=== PATIENT | female | born 1995 | race Caucasian/White ===

== ENCOUNTER 2022-12-29 17:39 | Emergency (ER) | payer OTHER, SELFPAY ==
--- NOTE | ~2022-12-29 | US_ITS ---
EXAMINATION: US PELVIS CLINICAL INFORMATION: History vaginal bleeding, pain. COMPARISON: None available. TECHNIQUE: Ultrasound of the pelvis is performed using both transabdominal and transvaginal transducers along with Doppler. Transvaginal imaging is performed due to inadequate visualization transabdominally. FINDINGS: The uterus is anteverted and measures 9 x 4 x 4.6 cm. No discrete uterine mass. The endometrium measures 1.3 cm in thickness without discrete focal abnormality. Complex appearance of the cervix with a prominent 2 x 1.2 x 1.6 cm polypoid/masslike abnormality in the endocervical canal, demonstrating heterogeneous echogenicity and no discrete associated flow. There is motion of debris within the endometrial canal and endocervical canal suggesting active movement of fluid/blood products. The ovaries are normal in morphology. The right ovary measures 2.5 x 1.6 x 2 cm, 4.4 mL. The left ovary measures 2.8 x 1.6 x 1 cm, 2.6 mL. There is preserved flow on color and spectral Doppler to the right ovary at the moment of this examination. There is preserved color flow to the left adnexa at the moment of this examination, however flow is not identified in the left ovary, which is favored to be related with technique limitations secondary to patient body habitus and overlying bowel gas, as the ovary demonstrates a normal size and morphology. No significant free fluid. US/US pelvic and transvaginal IMPRESSION: 1. Prominent approximately 2 cm avascular polypoid/masslike abnormality in the endocervical canal that could represent a blood clot/hematoma. Recommend a short-term follow-up pelvic ultrasound to ensure appropriate resolution and rule out underlying polyp or other type of intracervical mass. 2. Motion of debris in the cine images in the endometrium and endocervical canal suggests active motion of free fluid/blood products. 3. The endometrium measures up to 1.3 cm in thickness which is expected in a premenopausal patient on the secretory phase. However, during the menstruation this is considered abnormal, a short-term follow-up ultrasound is recommended. 4. Ovaries are normal in morphology and size. Flow to the left ovary was not definitely identified in this examination, but this is favored to be related with technique limitations in view of otherwise normal appearance of the left ovary. If torsion/detorsion is suspected, close follow-up and a very short-term repeat ultrasound is recommended.
[2022-12-29 17:42] VITALS: BP 139/94; PULSE 135; RESP 16; TEMP 36.8; O2SAT 97; BMI 33.2
--- NOTE | 2022-12-29 17:43 | ED.GENADULT ---
HPI - General Adult General Chief complaint: Vaginal Bleeding Stated complaint: Constant Vaginal Bleeding Time Seen by Provider: 12/29/22 19:49 Source: patient Mode of arrival: ambulatory Limitations: no limitations History of Present Illness HPI narrative: 27-year-old female presents with vaginal bleeding. Patient has history of irregular menses. Last menses was about 3-4 weeks ago. She is unsure if she is . She has started to have spotting yesterday and then today she had more significant bright red blood. No significant clots. She has had some moderate to severe cramping that is intermittent without clear relieving or exacerbating features. She denies any fevers or chills. She denies any urinary complaints. She denies any additional areas of bleeding. Related Data Allergies Allergy/AdvReac Type Severity Reaction Status Date / Time codeine Allergy Mild Hives Verified 12/29/22 17:47 Review of Systems Review of Systems: CONSTITUTIONAL: Denies weight loss, fever and chills. HEENT: Denies changes in vision and hearing. RESPIRATORY: Denies SOB and cough. CV: Denies palpitations no CP. GI: + abdominal pain, nausea,- vomiting and diarrhea. : Denies dysuria and urinary frequency. MSK: Denies myalgia and joint pain. SKIN: Denies rash and pruritus. NEUROLOGICAL: Denies headache and syncope. PSYCHIATRIC: Denies recent changes in mood. Denies anxiety and depression. All other ROS are negative unless in HPI [facility] Social History Social History Alcohol intake: current Alcohol intake frequency: a few times a month Smoked in Last 30 Days: Yes Use of substances other than those prescribed or required for medical reasons: Yes Substance Use Type: Marijuana Advance Directives: No Advance Directives Information Provided: No Physical Exam ED Vital Signs: Vital Signs - 24 hr 12/29/22 17:42 12/29/22 23:54 Temperature 98.2 F 98.3 F Pulse Rate 135 H 88 Respiratory Rate 16 18 Blood Pressure 139/94 H 95/53 L Pulse Oximetry 97 98 Oxygen Delivery Method Room Air Room Air BMI result Body Mass Index 33.2 GEN: Well developed, no acute distress, alert, oriented HEENT: Normocephalic, atraumatic, normal external ears, nose appears normal, no oropharyngeal edema or exudates Eyes: Normal to appearance Neck: Supple, no lymphadenopathy Respiratory: Talks in complete sentences, no respiratory distress, clear to auscultation bilaterally Cardiovascular: Regular rate and rhythm, no murmurs rubs or gallops Abdomen: Soft, nontender, nondistended, no guarding, no rebound Back: No CVA tenderness Extremities: No clubbing cyanosis or edema Neurologic: No focal neurologic deficits, cranial nerves 2-12 intact, strength is 5/5 bilaterally Skin: No rash : No active bleeding, small amount of blood in the vaginal canal, os closed Course Course Course Narrative: RME- 27 year old female presents for evaluation of vaginal bleeding and cramping that started earlier today. Patient reports that she gets irregular periods at baseline but has been having heavy vaginal bleeding with lower abdominal pain. She is not on control. Does not believe she is , but is sexually active. Plan for labs, UA, pelvic ultrasound Reevaluation(s) Reevaluation #1: patient is Rh positive. She does not need RhoGAM. Will recommend she follow-up with an OBGYN in 2 days or she can return to the emergency department for repeat blood testing Time: 00:01 Medical Decision Making Medical Decision Making [facility] Narrative: 27-year-old female presents with vaginal bleeding. Will check a CBC, hCG. If she will need a type and screen. Patient is unclear if she is in fact . Will obtain an ultrasound to rule out any significant abdomen issues and if she is in fact , to check for an intrauterine . Differential Diagnosis Differential Diagnoses: The differential diagnosis associated with the presentation includes ( DUB,. , menometrorrhagia, miscarriage) Admission/Observation Consideration of admission/observation: Escalation of care including admission/observation considered Lab Data [facility] Lab Attestation statement: I reviewed the patient's lab results. 12/29/22 18:17 12/29/22 18:17 Labs: Lab Results 12/29/22 12/29/22 12/29/22 Range/Units 18:17 18:17 22:46 WBC 10.7 (4.8-10.8) X10*3/uL RBC 3.84 L (4.20-5.50) X10*6/uL Hgb 11.6 L (12.0-16.0) g/dl Hct 33.2 L (37.0-47.0) % MCV 86.5 (80.0-98.0) fL MCH 30.2 (27.0-33.0) pg MCHC 34.9 (31.0-35.0) g/dl RDW 12.8 (11.0-16.0) % Plt Count 328 (160-400) X10*3/uL MPV 10.6 (9.4-12.3) fL Immature Gran % (Auto) 1.3 H (0.0-0.4) % Neut % (Auto) 60.5 (45-73) % Lymph % (Auto) 30.0 (20-40) % Hemphill % (Auto) 7.2 (2-11) % Eos % (Auto) 0.8 (0-4) % Baso % (Auto) 0.2 (0-2) % Lymph # (Auto) 3.2 (1.2-4.9) X10*3/uL Hemphill # (Auto) 0.8 (0.1-1.2) X10*3/uL Eos # (Auto) 0.1 (0.0-0.4) X10*3/uL Baso # (Auto) 0.0 (0.0-0.2) X10*3/uL Abs Immat Gran (auto) 0.14 H (0.00-0.03) X10*3/uL Absolute Neuts (auto) 6.4 (2.0-8.3) x10*3/uL Absolute Nucleated RBC 0.000 (0.0-0.012) X10*3/uL Nucleated RBC % (auto) 0.0 (0.0-0.2) /100WBC Sodium 137 (135-145) mmol/L Potassium 3.7 (3.3-5.1) mmol/L Chloride 106 (96-108) mmol/L Carbon Dioxide 24 (22-29) mmol/L Anion Gap 11 L (12-20) BUN 12 (9-16) mg/dL Creatinine 0.91 (0.5-1.4) mg/dL Estim Creat Clear Calc 86.0 Estimated GFR > 60 Random Glucose 98 (60-115) mg/dL Calcium 9.3 (8.4-10.2) mg/dL Total Bilirubin 0.4 (0.0-1.0) mg/dL AST 12 (5-31) U/L ALT 17 (0-31) U/L Alkaline Phosphatase 65 (39-117) U/L Total Protein 6.7 (6.5-8.0) g/dL Albumin 3.7 (3.5-5.0) g/dL Lipase 10 (8-78) U/L Beta HCG, Quant 1729 mIU/mL Blood Type O Positive Antibody Screen NEGATIVE Independent Interpretation I performed an independent interpretation of an: Ultrasound (No IUP visualized) Radiology Impression Discussion of test interpretation with radiology: I have reviewed the radiologist's reading. Radiologist Impression: US/US pelvic and transvaginal IMPRESSION: 1.? Prominent approximately 2 cm avascular polypoid/masslike abnormality in the endocervical canal that could represent a blood clot/hematoma. Recommend a short-term follow-up pelvic ultrasound to ensure appropriate resolution and rule out underlying polyp or other type of intracervical mass. 2.? Motion of debris in the cine images in the endometrium and endocervical canal suggests active motion of free fluid/blood products. 3.? The endometrium measures up to 1.3 cm in thickness which is expected in a premenopausal patient on the secretory phase. However, during the menstruation this is considered abnormal, a short-term follow-up ultrasound is recommended. 4.? Ovaries are normal in morphology and size. Flow to the left ovary was not definitely identified in this examination, but this is favored to be related with technique limitations in view of otherwise normal appearance of the left ovary. If torsion/detorsion is suspected, close follow-up and a very short-term repeat ultrasound is recommended. Prescription Management I considered prescription management with: Pain Medication and Other ( RhoGAM) Discharge Plan Discharge Clinical Impression: Miscarriage Patient Disposition: Home, Self-Care Instructions: Miscarriage (ED) Additional Instructions: I am recommending that you repeat blood testing for your quantitative hCG in 2 days. He can follow-up with any OBGYN or you can return to the emergency department for re-evaluation. Referrals: Rui Craig MD [Physician] - 2 days
--- OUTSIDE RECORDS SUMMARY | 2022-12-29 18:03 | XMS_ITS | Continuity of Care Document ---
Author Name Unknown Organization [facility] Address [address] [address]- Care Team Providers Care Heading Maker Name Role Phone Bassam MOTA, Ricky Marcus Primary Care Physician [facility]counter [facility] Date(s): 04/08/22 - 05/08/[address] [facility] [address] [address]- Allergies, Adverse Reactions, Alerts Substance Reaction Severity Status codeine rash Active Immunizations Given and Recorded Vaccine Date Status Refusal Reason SARS-CoV-2 (COVID-19) mRNA-1273 vaccine 04/25/21 R ecorded SARS-CoV-2 (COVID-19) mRNA-1273 vaccine 03/28/21 R ecorded influenza virus vaccine, inactivated 02/04/17 Give n influenza virus vaccine, inactivated 04/04/12 Give n influenza virus vaccine, inactivated 1 07/08/10 Gi licha tetanus/diphtheria/pertussis, acel(Tdap) 12/24/16 Given tetanus/diphtheria/pertussis, acel(Tdap) 2 07/08/10 Given influenza virus vaccine, live 02/11/15 Given influenza virus vaccine, live 3 04/19/14 Given Varicella Virus Vaccine 04/04/12 Given Varicella Virus Vaccine 4 01/03/98 Given Meningococcal Conjugate Vaccine 04/04/12 Given Human Papillomavirus Vaccine 04/04/12 Given Human Papillomavirus Vaccine 5 05/19/11 Given Human Papillomavirus Vaccine 6 07/08/10 Given Measles/Mumps/Rubella Virus Vaccine 7 07/08/10 Giv en Measles/Mumps/Rubella Virus Vaccine 8 03/27/01 Giv en Measles/Mumps/Rubella Virus Vaccine 9 01/03/98 Giv en Poliovirus Vaccine, Inactivated 10 03/27/01 Given Poliovirus Vaccine, Inactivated 11 01/03/98 Given Poliovirus Vaccine, Inactivated 12 10/03/97 Given Poliovirus Vaccine, Inactivated 13 08/03/97 Given diphtheria/tetanus/pertussis, acel(DTaP) 14 03/27/01 Given diphtheria/tetanus/pertussis, acel(DTaP) 15 07/06/98 Given diphtheria/tetanus/pertussis, acel(DTaP) 16 11/03/97 Given diphtheria/tetanus/pertussis, acel(DTaP) 17 10/03/97 Given diphtheria/tetanus/pertussis, acel(DTaP) 18 08/03/97 Given Haemophilus B conjugate (HbOC) vaccine 19 01/03/98 Given Haemophilus B conjugate (HbOC) vaccine 20 11/03/97 Given Haemophilus B conjugate (HbOC) vaccine 21 10/03/97 Given Haemophilus B conjugate (HbOC) vaccine 22 08/03/97 Given hepatitis B pediatric vaccine 23 11/03/97 Given hepatitis B pediatric vaccine 24 08/03/97 Given hepatitis B pediatric vaccine 25 01/03/97 Given 1Admin Note: VIS 12/16/09 GIVEN 2Admin Note: ADACEL LOWER SITE VIS 03/26/08 GIVEN 3Result Comment: verbal permission by mom via phone 4Admin Note: GIVEN BY RN 5Admin Note: VIS 06/10/06 GIVEN 6Admin Note: VIS 06/10/06 GIVEN 7Admin Note: vis 07/20/07 given 8Admin Note: GIVEN BY RN 9Admin Note: GIVEN BY RN 10Admin Note: GIVEN BY RN 11Admin Note: GIVEN BY RN 12Admin Note: GIVEN BY RN 13Admin Note: GIVEN BY RN 14Admin Note: GIVEN BY RN 15Admin Note: GIVEN BY RN 16Admin Note: GIVEN BY RN 17Admin Note: GIVEN BY RN 18Admin Note: GIVEN BY RN 19Admin Note: GIVEN BY RN 20Admin Note: GIVEN BY RN 21Admin Note: GIVEN BY RN 22Admin Note: GIVEN BY RN 23Admin Note: GIVEN BY RN 24Admin Note: GIVEN BY RN 25Admin Note: GIVEN BY RN Medications hydrocortisone 1% topical cream See Instructions, apply a thin layer to face 1 to 3 times per day as needed for itch., # 30 Gm, 0 Refills, Maintenance, 05/24/19 18:40:00 EST, [id number], apply a thin layer to face 1 to 3 times per day as needed for itch., 155.1, cm,... Start Date: 05/24/19 Status: Ordered ibuprofen 800 mg oral tablet 800 mg, 1, tablet, By Mouth, Every 8 hours, # 30 tablet, Refills 0, Tot. Refills 0, Maintenance, 04/17/22 6:45:00 EST, Route to Pharmacy Electronically, [id number], Partial fill uponpatient request if the prescription is for a schedu... Start Date: 04/17/22 Status: Ordered Multivitamins with Folic Acid 1 mg oral tablet 1 tablet, By Mouth, Daily, # 90 tablet, 2 Refills, Maintenance, 03/25/22 9:19:00 EST, [id number], Partial fill upon patient request if the prescription is for a schedule II opioid drug., 1 tablet By Mouth Daily, 155.1, cm, 03/25/22 8:... Start Date: 03/25/22 Status: Ordered Problem List Condition Confirmation Course Effective Dates Status Health St atus Informant Allergic reaction to drug Confirmed Active H/O gestational diabetes in prior , currently Confirmed Active History of COVID-19 May 1 Confirmed Active Obese class I Confirmed Active Well adolescent Confirmed Active 1 I still can't smell some things or taste them Social History Social History Type Response Smoking Status Never (less than 100 in lifetime) entered on: 03/25/22 Sex Female Patient Care team information Care Team Personnel Name: Dottie Nicole RN Position: [facility] OB RN Member Role: Primary Care Nurse Name: Ricky Banegas MD Position: [facility] Primary Care Physician Member Role: PCP Address: Address: [address] [place] [address]- Care Team Related Persons Name: ANNA BAEZA Name: FELTON TAPIA Address: [address] [place] [address] Name: FEDE ALMARAZ Address: [address] [address]
--- OUTSIDE RECORDS SUMMARY | 2022-12-29 18:03 | XMS_ITS | Continuity of Care Document ---
Author Name Unknown Organization [facility] Address [address] [place] [address]- Care Team Providers Care Hotel Desk Clerk Name Role Phone Bassam MOTA, Ricky Marcus Primary Care Physician [facility]counter [facility] Date[facility]s): 03/30/22 - 04/29/[address] [address]- Allergies, Adverse Reactions, Alerts Substance Reaction Severity [...] Gm, 0 Refills, Maintenance, 05/24/19 18:40:00 EST, [facility][id number], apply a thin layer to face 1 to 3 times per day as needed for itch., 155.1, cm,... Start Date: 05/24/19 Status: Ordered ibuprofen 800 mg oral tablet 800 mg, 1, tablet, By Mouth, Every 8 hours, # 30 tablet, Refills 0, Tot. Refills 0, Maintenance, 04/17/22 6:45:00 EST, Route to Pharmacy Electronically, [facility] #[id number], Partial fill uponpatient request if the prescription is for a schedu... Start Date: 04/17/22 Status: Ordered Multivitamins with Folic Acid 1 mg oral tablet 1 tablet, By Mouth, Daily, # 90 tablet, 2 Refills, Maintenance, 03/25/22 9:19:00 EST, [facility] #[id number], Partial fill upon patient request if the [...] Team Personnel Name: Dottie Nicole RN Position: [facility] OB RN Member Role: Primary Care Nurse Name: Ricky Banegas MD Position: [facility] Primary Care Physician Member Role: PCP Address: Address: [address] [place] [id number]- Care Team Related Persons Name: SOLEDAD BAEZAICE Name: FELTON TAPIA Address: [address] [place] [address] Name: FEDE ALMARAZ Address: [address] [address]
--- OUTSIDE RECORDS SUMMARY | 2022-12-29 18:03 | XMS_ITS | Continuity of Care Document ---
Author Name Unknown Organization [facility] Address [address] [place] [address]- Care Team Providers Care Retread Mold Operator Name Role Phone Michael Kim MD Primary Care Physician [phone] [facility]counter [facility] Date(s): 05/24/19 - 06/03/19 [facility] [address] [place] [address]- [facility] Attending Physician: Meghana Randall Admitting Physician: AdmMeghana kline Referring Physician: AdmtrMeghana Allergies, Adverse Reactions, Alerts Substance Reaction Severity Status codeine rash Active Immunizations Given and Recorded Vaccine Date Status Refusal Reason influenza virus vaccine, inactivated 02/04/17 Give n [...] 30 Gm, 0 Refills, Maintenance, 05/24/19 18:40:00 [facility] #[id number], apply a thin layer to face 1 to 3 times per day as needed for itch., 155.1, cm,... Start Date: 05/24/19 Status: Ordered Nexplanon 68 mg subcutaneous implant 1 each = 68 mg, Subcutaneous Infusion, Once, # 1 each, 0 Refills, Soft Stop, 03/09/17 1:02:31 Start Date: 03/09/17 Status: Ordered Problem List Condition Effective Dates Status Health Status Inform ant Gestational diabetes(Confirmed) Active Well adolescent(Confirmed) Active Social History Social History Type Response Smoking Status Never (less than 100 in lifetime) entered on: 01/19/19 Sex
--- OUTSIDE RECORDS SUMMARY | 2022-12-29 18:03 | XMS_ITS | Continuity of Care Document ---
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 Start Date: 05/24/19 Status: Ordered Multivitamins with Folic Acid 1 mg oral tablet 1 tablet, By Mouth, Daily, # 90 tablet, 2 Refills, Maintenance, 03/25/22 9:19:00 EST, [facility] #[id number], Partial fill upon patient request if the prescription is for a schedule II opioid drug., 1 tablet By Mouth Daily, 155.1, cm, 03/25/22 8:... Start Date: 03/25/22 Status: Ordered pyridoxine 25 mg oral tablet 1 tablet = 25 mg, By Mouth, 3 times a day, for 14 days, # 42 tablet, 1 Refills, Acute 04/22/22 9:19:00 EST, 03/25/22 9:19:00 EST, Tablet, [facility][id number], Partial fill upon patient request if the prescription is for a schedule II opioid . Start Date: 03/25/22 Stop Date: 04/22/22 Status: Ordered Problem List Condition Confirmation Course Effective Dates Status Health St atus Informant Allergic reaction to drug Confirmed Active H/O gestational diabetes in prior , currently Confirmed Active History of COVID-May 1 Confirmed Active Obese class I Confirmed Active Well adolescent Confirmed Active 1 I still can't smell some things or taste them Vital Signs Most recent to oldest [Reference Range]: 1 2 3 Weight 78.1 kg (04/16/22 9:50 AM) Oxygen Saturation [94-100 %] 96 % (04/16/22 11:30 AM) 100 % (04/16/22 11:15 AM) 99 % (04/16/22 11:00 AM) Pulse Rate [55-90 bpm] 58 bpm (04/16/22 9:50 AM) Blood Pressure [90-138/55-84 mm Hg] 126/87mm Hg (04/16/22 11:30 AM) 123/80mm Hg (04/16/22 11:15 AM) 117/70mm Hg (04/16/22 11:00 AM) Respiratory Rate [16-30 br/min] 17 br/min (04/16/22 11:30 AM) 18 br/min (04/16/22 11:15 AM) 21 br/min (04/16/22 11:00 AM) Temperature [96.8-100.4 DegF] 97.1 DegF (04/16/22 11:00 AM) 98.0 DegF (04/16/22 9:50 AM) Liters per Minute 6 L/min (04/16/22 11:15 AM) 6 L/min (04/16/22 11:00 AM) Mode of Delivery (Oxygen) Room air (04/16/22 11:30 AM) Simple face mask (04/16/22 11:15 AM) Simple face mask (04/16/22 11:00 AM) Blood pressure sites Arm, left (04/16/22 11:00 AM) Arm, left (04/16/22 9:50 AM) Temperature Route Temporal (04/16/22 11:00 AM) Temporal (04/16/22 9:50 AM) Dry Weight 78.1 kg (04/16/22 9:50 AM) Weight Obtained Via Standing scale (04/16/22 9:50 AM) Dry Weight Obtained Via Standing scale (04/16/22 9:50 AM) Social History Social History Type Response Smoking Status Never (less than 100 in lifetime) entered on: 03/25/22 Sex Note * Evelyn Arzola RN: PERFORM Event Display: Discharge/Transfer Note Hospital Authored Date: [id number] Nursing Discharge Note Entered On: 04/16/2022 12:11 EST Performed On: 04/16/2022 12:10 EST by Evelyn Arzola RN Nursing Discharge Note 2 Discharge Time : 04/16/2022 12:10 EST Discharge Level of Care at Discharge : Home/Care Home/Foster Care Patient Left Unit Via : Wheelchair Patient Accompanied Off Unit with : Responsible adult DC Instructions Provided & Signed by Pt : Yes Patient Understands D/C Instructions : Yes Patient Instructions Discharge Signed : Yes Did Pt have Specialty Bed or Wound Vac : No Evelyn Arzola RN - 04/16/2022 12:10 EST * Evelyn Arzola RN: PERFORM Event Display: Patient Education/Instruction Authored Date: Inpatient Adult Discharge Instructions [address] [address] Name: MARY TAPIA : 1995 Visit: 04/16/2022 09:09:00 Current Date: 04/16/2022 11:21 Account: [id number] Inpatient Adult Discharge Instructions We would like to thank you for allowing us to assist you with your healthcare needs. The following includes patient education materials and information regarding your injury/illness. Our entire staffstrives to provide an excellent experience for our patients and their families. PLEASE ENSURE YOU FOLLOW-UP PER THE INSTRUCTIONS BELOW! ?? YOUR OPINION IS IMPORTANT TO US! Please complete the survey you may receive by mail or email. Your feedback will be used to make improvements to the healthcare experiences of our patients and their families. Surveys are administered by [employer] ?? If further treatment with your primary care physician or another doctor is recommended, it is important for you to keep the appointment. Call your primary care physician or return to the Emergency Department immediately if your condition worsens, fails to improve, or new symptoms develop. If you need to find a doctor, you can call [facility] [employer] for a referral at [phone] or toll free at [phone] or log in to [email or web address].. ?? You can view and manage your care through the patient portal or by using a health care malinda of your choosing. [email or web address] is a website that allows you to securely view your medical information including your hospital discharge summary, office visit summaries, medications and follow-up visits. You can also request appointments, renew medications, and request access to your medical information using a health care malinda of your choosing, or just ask a question. You can enroll at [email or web address] or register during your next office visit. You have been discharged from [facility], Patient Care Unit: [facility]. If you have any questions regarding these instructions after you leave, please call us and we will be happy to assist you. [facility] Your Care Team Attending Physician Ada Prince MD Discharging Providers Harvey Nolasco DO Reason for Admission SPECIAL PROCEDURE CS DS Tests Performed Below is a partial list of the tests performed during your hospitalization. You may have had other tests and procedures not included in this list. Please discuss all test results with your provider. Primary Care Provider Ricky Banegas MD Advance Directive Health Care Proxy on File No No qualifying data available. Discharge Vitals Temperature: 97.1 DegF Weight: 78.1 kg Pulse Rate: 58 bpm ?? Respiratory Rate: 18 br/min ?? Systolic Blood Pressure: 123 mm Hg ?? Diastolic Blood Pressure: 80 mm Hg ?? Oxygen Saturation: 100 % ?? Studies Pending All tests and labs ordered during this hospital stay have been completed unless listed below. Please discuss all pending results with your provider listed above in these instructions. ?? No incomplete studies found What to do next Instructions From Your Doctor Discharge Orders Instructions from your Care Team FOLLOW POSTOP INSTRUCTIONS Scheduled Follow-Up Appointments Tuesday 9:40 AM EST ?? Where: [facility] [address] [place] [address]- You Need to Schedule the Following Appointments Follow Up with??Ada Prince When??Within 1 to 2 weeks Where: [address] [place] [address] [address]- Business (1) Follow Up with??Ricky Banegas When??In 0 days Where: [address] [place] [address]- Business (1) Discharge Medications MARY TAPIA :1995 Visit Date:04/16/2022 Medications: Please continue your medications until treatment is completed or stopped by your provider. Medications not listed below should be discontinued. Discuss any questions related to medications with your provider. What How Much When Instructions Next Dose Unchanged Hydrocortisone Topical (hydrocortisone 1% topical cream) See instructions apply a thin layer to face 1 to 3 times per day as needed for itch. ?? Unchanged Multivitamin, ( Multivitamins with Folic Acid 1 mg oral tablet) 1 tab(s) Oral Daily Unchanged Pyridoxine (pyridoxine 25 mg oral tablet) 1 tab(s) Oral 3 times a day Duration: 14 Days Test Results Below is a partial list of the most recent Laboratory test results done prior to this discharge. You may have had other tests and procedures not included in this list. Please discuss all test resultswith your provider. Allergies (NKA means No Known Allergies) codeine??(rash) Problems Active Problems??(6) Allergic reaction to drug?? H/O gestational diabetes in prior , currently ?? History of COVID-19 ??May?? Obese class I? Well adolescent?? Education Materials Below is the list of Educational Leaflet Providered with your Discharge Instructions. Surgery Medical Daystay Surgical Overnight Discharge Instructions?? Valuables and Belongings I fully understand and agree that [facility] accepts no responsibility for all my personal property including clothing, toilet articles, radios, jewelry, dentures, hearing aids, rings, money, or any other property that is in my possession or is brought to me after admission. I understand certain valuables may be placed in a hospital safe for a short period of time. I understand that the hospital is not liable for loss or damage due to accident, fire, or other natural occurrence while said property is in the safe. I accept full responsibility for any personal property that I keep with me, and will not hold the hospital responsible in case of loss or disappearance. I acknowledge that i have been encouraged to send valuables and belongings home. ?? Review of Valuable and Belonging List: With patient Date for Pt to Sign Valuables/Belongings: 04/16/22 09:50:00 ?? Valuables & Belongings ?? 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 Other: ID ?? Valuables Sent Home ? Valuables Sent to Security ? Other Discharge Information ? Pulmonary Rehab Status?? Pulmonary Rehab Discharge Status?? Respiratory Rate: 18 br/min ? Common Emergency Awareness Tips IS IT A STROKE? Act FAST and Check for these signs: FACE Does the face look uneven? ARM Does one arm drift down? SPEECH Does their speech sound strange? TIME Call at any sign of stroke ?? Heart Attack Signs Chest discomfort: Most heart attacks involve discomfort in the center of the chest and lasts more than a few minutes, or goes away and comes back. It can feel like uncomfortable pressure, squeezing, fullness or pain. Discomfort in upper body: Symptoms can include pain or discomfort in one or both arms, back, neck, jaw or stomach. Shortness of breath: With or without discomfort. Other signs: Breaking out in a cold sweat, nausea, or lightheaded. Remember, MINUTES DO MATTER. If you experience any of these heart attack warning signs, call to get immediate medical attention! ?? Smoking can increase your chances of developing chronic health problems and can cause harmful effects to other family members in your house. If you smoke, you are strongly encouraged to quit. Please call [facility] [employer] at [phone] or [phone] ([phone]) or log in to [email or web address] for referrals to smoking cessation programs. ?? The National Suicide Prevention Hotline is available 29/11 if you or someone you know needs to find a reason to keep living. By calling 4-542-019-[employer] (2840) you'll be connected to a skilled, trained counselor at a crisis center in your area. INPATIENT DISCHARGE INSTRUCTIONS SIGNATURE PAGE MARY TAPIA Location:[facility] Registration Date and Time:04/16/2022 09:09 [facility] Primary Care Physician: Bassam MOTA, Ricky Marcus, I MARY TAPIA, have received the above patient education materials/instructions and have verbalized understanding. If ambulance or transport services are being used I further acknowledge being given a choice of service. ?? If you need to contact me, please call me at this number: . Patient/Health Sciences Dean Name: Patient/Health Sciences Dean Signature: Relationship to Patient: Witness Name/Signature: Date: * Evelyn Arzola RN: PERFORM, SIGN, VERIFY Event Display: Patient Education Handout Authored Date: * Evelyn Arzola RN: PERFORM Event Display: Patient Education Leaflets Authored Date: Surgery Medical Daystay Surgical Overnight Discharge Instructions ?? 295 Medical Daystay/Surgical Overnight Discharge Instructions ? Since your coordination and judgment may be altered by medication and/or anesthesia, a responsible adult must drive you home from the hospital. ? If you have received medication for pain or sedation while under our care, you should not drive, operate machinery, drink alcohol, or sign any legal documents for 24 hours.?? You should have someone with you at home tonight. ? Remain at home the day of discharge.?? You may be up and about unless otherwise instructed by your physician. ? You may resume your daily prescription medication schedule.?? Any depressant medication should be avoided for 24 hours unless otherwise instructed by your surgeon or anesthesiologist. ? Call your physician for a follow-up appointment.? If you experience unusual or severe pain not relied by your pain medication, excessive bleedingor drainage, persistent nausea and vomiting, excessive swelling or redness, foul odor from incisionsite or fever over 100.6F, you need to call your physician. ? A follow-up phone call by a nurse will be made the day after your procedure.?? If you have stayed with us over night, you will not be receiving a follow-up phone call. ? Nausea and vomiting are a common side effect of prescription pain medication.?? We recommend that pills are not taken on an empty stomach.?? While taking any prescription pain medication you should not drive or drink alcohol. ? Patient Care team information Care Team Personnel Name: Dottie Nicole RN Position: [facility] OB RN Member Role: Primary Care Nurse Name: Ricky Banegas MD Position: [facility] Primary Care Physician Member Role: PCP Address: Address: [address] [place] [address]- Care Team Related Persons Name: ANNA BAEZA Name: FELTON TAPIA Address: home [address] [place] [address] Name: FEDE ALMARAZ Address: [address] [address]
--- OUTSIDE RECORDS SUMMARY | 2022-12-29 18:03 | XMS_ITS | Continuity of Care Document ---
Author Name Unknown Organization [facility] Address [address] [place] [address]- Care Team Providers Care Motion Picture Printer Name Role Phone Bassam MOTA, Ricky Marcus Primary Care Physician Encounter [facility] Date(s): 08/31/22 - 09/30/[address] [address]- Attending Physician: Admtr, Joseph8 Admitting Physician: Admtr, Ar8 Referring Physician: Admtr, Ar8 Allergies, Adverse Reactions, Alerts Substance Reaction Severity [...] Gm, 0 Refills, Maintenance, 05/24/19 18:40:00 EST, [facility] #[id number], apply a thin layer to face 1 to 3 times per day as needed for itch., 155.1, cm,... Start Date: 05/24/19 Status: Ordered ibuprofen 800 mg oral tablet 800 mg, 1, tablet, By Mouth, Every 8 hours, # 30 tablet, Refills 0, Tot. Refills 0, Maintenance, 04/17/22 6:45:00 EST, Route to Pharmacy Electronically, [facility] #[id number], Partial fill uponpatient request if the prescription is for a schedu... Start Date: 04/17/22 Status: Ordered Multivitamins with Folic Acid 1 mg oral tablet 1 tablet, By Mouth, Daily, # 90 tablet, 2 Refills, Maintenance, 03/25/22 9:19:00 EST, [facility] #[id number], Partial fill upon patient request if the [...] can't smell some things or taste them Procedures Procedure Date Related Diagnosis Body Site Status Nexplanon in place removed 2020 0503/11/17 Completed 1Insertion 03/11/17 Lot # [id number] Social History Social History Type Response Smoking Status Never (less than 100 in lifetime) entered on: 03/25/22 Sex Female Patient Care team information Care Team Personnel Name: Dottie Nicole RN Position: [facility] OB RN Member Role: Primary Care Nurse Name: Ricky Banegas MD Position: [facility] Physician - Primary Care Member Role: PCP Address: Address: [address] [place] [address] Care Team Related Persons Name: ANNA BAEZA Name: FELTON TAPIA Address: [address] [place] [address] Name: FEDE ALMARAZ Address: [address] [address]
--- OUTSIDE RECORDS SUMMARY | 2022-12-29 18:03 | XMS_ITS | Continuity of Care Document ---
Author Name Unknown Organization [facility] Address [address] [place] [address]- Care Team Providers Care Examination Grader Name Role Phone Michael Kim MD Primary Care Physician Encounter [facility] Date(s): 05/19/19 - 05/26/19 [facility] [address] [place] [address]- [facility] Attending Physician: Suman Zimmer MD Referring Physician: Michael Kim MD Allergies, Adverse Reactions, Alerts Substance Reaction [...] 30 Gm, 0 Refills, Maintenance, 05/24/19 18:40:00 [facility][id number], apply a thin layer to face 1 [...] ant Gestational diabetes(Confirmed) Active Well adolescent(Confirmed) Active Vital Signs Most recent to oldest [Reference Range]: 1 Height 155.1 cm (05/19/19 10:49 AM) Oxygen Saturation [94-100 %] 99 % (05/19/19 10:49 AM) Pulse Rate [55-90 bpm] 93 bpm *H* (05/19/19 10:49 AM) Blood Pressure [90-138/55-84 mm Hg] 129/ 69mm Hg (05/19/19 10:49 AM) Respiratory Rate [16-30 br/min] 20 br/mi n (05/19/19 10:49 AM) Temperature [96.8-100.4 DegF] 99.7 DegF (05/19/19 10:49 AM) Mode of Delivery (Oxygen) Room air (05/19/19 10:49 AM) Blood pressure sites Arm, left (05/19/19 10:49 AM) Temperature Route Oral (05/19/19 10:49 AM) Social History Social History Type Response Smoking Status Never (less than 100 in lifetime) entered on: 01/19/19 Sex
--- OUTSIDE RECORDS SUMMARY | 2022-12-29 18:03 | XMS_ITS | Continuity of Care Document ---
Author Name Unknown Organization [facility] Address [address] [place] [address]- Care Team Providers Care Strategic Alliances Manager Name Role Phone Michael Kim MD Primary Care Physician Encounter [facility] Date(s): 08/13/19 - 08/20/19 [facility] [address] [place] [address]- [facility] Encounter Diagnosis Allergic reaction to drug(Discharge Diagnosis) - 08/13/19 Healthcare maintenance(Discharge Diagnosis) - 08/13/19 Attending Physician: Darren MOTA, Laurent Stock Allergies, Adverse Reactions, Alerts Substance Reaction Severity [...] 30 Gm, 0 Refills, Maintenance, 05/24/19 18:40:00 [facility], [facility] #[id number], apply a thin layer to face 1 to 3 times per day as needed for itch., 155.1, cm,... Start Date: 05/24/19 Status: Ordered Nexplanon 68 mg subcutaneous implant 1 each = 68 mg, Subcutaneous Infusion, Once, # 1 each, 0 Refills, Soft Stop, 03/09/17 1:02:31 Start Date: 03/09/17 Status: Ordered Problem List Condition Effective Dates Status Health Status Inform ant Allergic reaction to drug(Confirmed) Active Gestational diabetes(Confirmed) Active Well adolescent(Confirmed) Active Diagnosis Diagnosis Type Effective Dates Health Status Clinical Service Informant Allergic reaction to drug Discharge Diagnosis 08/13/19 Healthcare maintenance Discharge Diagnosis 08/13/19 Social History Social History Type Response Smoking Status Never (less than 100 in lifetime) entered on: 01/19/19 Sex
--- OUTSIDE RECORDS SUMMARY | 2022-12-29 18:03 | XMS_ITS | Continuity of Care Document ---
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 Start Date: 05/24/19 Status: Ordered ibuprofen 800 mg oral tablet 800 mg, 1, tablet, By Mouth, Every 8 hours, # 30 tablet, Refills 0, Tot. Refills 0, Maintenance, 04/17/22 6:45:00 EST, Route to Pharmacy Electronically, [facility] #[id number], Partial fill uponpatient request if the prescription is for a schedu... Start Date: 04/17/22 Status: Ordered Multivitamins with Folic Acid 1 mg oral tablet 1 tablet, By Mouth, Daily, # 90 tablet, 2 Refills, Maintenance, 03/25/22 9:19:00 EST, [facility] #[id number], Partial fill upon patient request if the [...] Team Personnel Name: Dottie Nicole RN Position: [facility] OB RN Member Role: Primary Care Nurse Name: Ricky Banegas MD Position: [facility] Physician - Primary Care Member Role: PCP Address: Address: [address] [place] [address]- Care Team Related Persons Name: ANNA BAEZA Name: FELTON TAPIA Address: [address] [place] [address] Name: FEDE ALMARAZ Address: [address] [place] [address]
--- OUTSIDE RECORDS SUMMARY | 2022-12-29 18:03 | XMS_ITS | Continuity of Care Document ---
Author Name Unknown Organization [facility] Address [address] [place] [address]- Care Team Providers Care Model Builder Display Name Role Phone Bassam MOTA, Ricky Marcus Primary Care Physician Encounter [facility] Date(s): 06/18/20 - 07/18/20 [facility] [address] [address]- Attending Physician: Meghana Randall Admitting Physician: AdmMeghana kline Referring Physician: Admtr ArMaria E Allergies, Adverse Reactions, Alerts Substance Reaction Severity [...] Gm, 0 Refills, Maintenance, 05/24/19 18:40:00 EST, [facility] #[id number], apply a thin layer to face 1 to 3 times per day as needed for itch., 155.1, cm,... Start Date: 05/24/19 Status: Ordered Problem List Condition Effective Dates Status Health Status Inform ant Allergic reaction to drug(Confirmed) Active Gestational diabetes(Confirmed) Active Well adolescent(Confirmed) Active Procedures Procedure Date Related Diagnosis Body Site Status Nexplanon in place 1 03/11/17 Comp leted 1Insertion 03/11/17 Lot # [id number] Social History Social History Type Response Smoking Status Never (less than 100 in lifetime) entered on: 01/19/19 Sex
--- OUTSIDE RECORDS SUMMARY | 2022-12-29 18:03 | XMS_ITS | Continuity of Care Document ---
Author Name Unknown Organization [facility] Address [address] [place] [address]- Care Team Providers Care Labor Arbitrator Name Role Phone Michael Kim MD Primary Care Physician Encounter [facility] Date(s): 08/13/19 - 08/23/19 [facility] [address] [place] [address]- [facility] Attending Physician: Meghana Randall Admitting Physician: AdmMeghana [...] 30 Gm, 0 Refills, Maintenance, 05/24/19 18:40:00 [facility] #[id number], apply a thin layer to face 1 [...] Active Gestational diabetes(Confirmed) Active Well adolescent(Confirmed) Active Social History Social History Type Response Smoking Status Never (less than 100 in lifetime) entered on: 01/19/19 Sex
--- OUTSIDE RECORDS SUMMARY | 2022-12-29 18:03 | XMS_ITS | Continuity of Care Document ---
Author Name Unknown Organization [facility] Address [address] [place] [address]- Care Team Providers Care Acupressure Therapist Name Role Phone Bassam MOTA, Ricky Marcus Primary Care Physician [phone] [facility]counter [facility] Date(s): 03/03/22 - 04/02/[address] [address]- Allergies, Adverse Reactions, Alerts Substance Reaction Severity [...] Gm, 0 Refills, Maintenance, 05/24/19 18:40:00 EST, [facility] #[id number], apply a thin layer to face 1 to 3 times per day as needed for itch., 155.1, cm,... Start Date: 05/24/19 Status: Ordered Multivitamins with Folic Acid 1 mg oral tablet 1 tablet, By Mouth, Daily, # 90 tablet, 2 Refills, Maintenance, 03/25/22 9:19:00 EST, [facility] #[id number], Partial fill upon patient request if the prescription is for a schedule II opioid drug., 1 tablet By Mouth Daily, 155.1, cm, 03/25/22 8:... Start Date: 03/25/22 Status: Ordered pyridoxine 25 mg oral tablet 1 tablet = 25 mg, By Mouth, 3 times a day, for 14 days, # 42 tablet, 1 Refills, Acute 04/22/22 9:19:00 EST, 03/25/22 9:19:00 EST, Tablet, [facility] #[id number], Partial fill upon patient request if the prescription is for a schedule II opioid dr... Start Date: 03/25/22 Stop Date: 04/22/22 Status: Ordered Unisom 25 mg oral tablet 1 tablet = 25 mg, By Mouth, Daily at bedtime, PRN for sleep, # 16 tablet, 0 Refills, Acute 228:19:00 EST, 03/25/22 9:19:00 EST, Tablet, [facility] #[id number], Partial fill upon patient request if the prescription is for a schedule II opio... Start Date: 03/25/22 Stop Date: 04/07/22 Status: Ordered Problem List Condition Confirmation Course Effective Dates Status Health St atus Informant Allergic reaction to drug Confirmed Active H/O gestational diabetes in prior , currently Confirmed Active History of COVID-19 May 1 Confirmed Active Well adolescent Confirmed Active 1 I still can't smell some things or taste them Social History Social History Type Response Smoking Status Never (less than 100 in lifetime) entered on: 03/25/22 Sex Patient Care team information Care Team Personnel Name: Dottie Nicole RN Position: S OB RN Member Role: Primary Care Nurse Name: Ricky Banegas MD Position: [facility] Primary Care Physician Member Role: PCP Address: Address: [address] [place] [address]- Care Team Related Persons Name: ANNA BAEZA Name: FELTON TAPIA Address: home [address] [place] [address] Name: FEDE ALMARAZ Address: [address] [address]
--- OUTSIDE RECORDS SUMMARY | 2022-12-29 18:03 | XMS_ITS | Continuity of Care Document ---
Author Name Unknown Organization [facility] Address [address] [place] [address]- Care Team Providers Care Electric Operator Name Role Phone Michael Kim MD Primary Care Physician [facility] Date[facility]s): 04/09/20 - 05/09/20 [facility] [address] [place], [place] [address] Allergies, Adverse Reactions, Alerts Substance Reaction Severity [...] 30 Gm, 0 Refills, Maintenance, 05/24/19 18:40:00 [facility], [facility] #[id number], apply a thin layer to face 1 [...]
--- OUTSIDE RECORDS SUMMARY | 2022-12-29 18:03 | XMS_ITS | Continuity of Care Document ---
Author Name Unknown Organization [facility] Address [address] [place] [address]- Care Team Providers Care Military Source Operations Specialist Name Role Phone Michael Kim MD Primary Care Physician [facility] Date(s): 05/05/20 - 06/04/[address] [address]- Allergies, Adverse Reactions, Alerts Substance Reaction Severity [...] 30 Gm, 0 Refills, Maintenance, 05/24/19 18:40:00 [facility], [facility] #[id number], apply a thin layer to face 1 [...]
--- OUTSIDE RECORDS SUMMARY | 2022-12-29 18:03 | XMS_ITS | Continuity of Care Document ---
Author Name Unknown Organization [facility] Address [address] [place] [address]- Care Team Providers Care Gas Main And Line Fitter Name Role Phone Bassam MOTA, Ricky Marcus Primary Care Physician [facility]counter [facility] Date(s): 03/25/22 - 05/15/[address] [address]- Attending Physician: Not on Staff, Attending MD Referring Physician: Not on Staff, Referring MD Allergies, Adverse Reactions, Alerts Substance Reaction [...] Gm, 0 Refills, Maintenance, 05/24/19 18:40:00 EST, [facility] #[id number], apply a thin layer to face 1 to 3 times per day as needed for itch., 155.1, cm,... Start Date: 05/24/19 Status: Ordered ibuprofen 800 mg oral tablet 800 mg, 1, tablet, By Mouth, Every 8 hours, # 30 tablet, Refills 0, Tot. Refills 0, Maintenance, 04/17/22 6:45:00 EST, Route to Pharmacy Electronically, [facility] #[id number], Partial fill uponpatient request if the prescription is for a schedu... Start Date: 04/17/22 Status: Ordered Multivitamins with Folic Acid 1 mg oral tablet 1 tablet, By Mouth, Daily, # 90 tablet, 2 Refills, Maintenance, 03/25/22 9:19:00 EST, [facility] #[id number], Partial fill upon patient request if the [...] Team Personnel Name: Dottie Nicole RN Position: [facility] OB RN Member Role: Primary Care Nurse Name: Ricky Banegas MD Position: [facility] Primary Care Physician Member Role: PCP Address: Address: [address] [place] [address]- Care Team Related Persons Name: BAEZAANNA COY Name: FELTON TAPIA Address: [address] [place] [address] Name: FEDE ALMARAZ Address: [address] [address]
--- OUTSIDE RECORDS SUMMARY | 2022-12-29 18:03 | XMS_ITS | Continuity of Care Document ---
Author Name Unknown Organization [facility] Address [address] [place] [address]- Care Team Providers Care Equipment Maint Tech Name Role Phone Michael Kim MD Primary Care Physician [phone] Encounter [facility] Date(s): 01/02/21 - 01/02/[address] [address]- Encounter Diagnosis Ankle sprain(Final) - 01/02/21 Discharge Disposition: A-D/C Home Attending Physician: Jacinta Wilkins MD Admitting Physician: Jacinta Wilkins MD Referring Physician: Not on Staff, Referring [...] Gm, 0 Refills, Maintenance, 05/24/19 18:40:00 EST, [facility] #[id number], apply a thin layer to face 1 to 3 times per day as needed for itch., 155.1, cm,... Start Date: 05/24/19 Status: Ordered Problem List Condition Effective Dates Status Health Status Inform ant Allergic reaction to drug(Confirmed) Active Gestational diabetes(Confirmed) Active Well adolescent(Confirmed) Active Results Radiology Reports * Exam Date Time Procedure Performing Provider Status 01/02/21 4:37 AM Ankle Min 3 Views Left Luis Manuel Sullivan son; Auth (Verified) Notes: (Ankle Min 3 Views Left) Reason For Exam: with Pain;Trauma RESULT: Ankle Min 3 Views Left Ankle Min 3 Views Left HX OF PRESENT ILLNESS: twisted ankle, pain and swelling; Reason: Trauma; with Pain; Clinical Question(s): Fracture COMPARISON: None. FINDINGS: No evidence of acute or healing fracture or bone lesion. Intact ankle mortise and talar dome. No arthritic changes. There is soft tissue swelling around the ankle. IMPRESSION: No evidence of acute osseous abnormality. WSN: [id number] Ordering Physician: Trini Hurd Dictated By: Earnest Escobar MD Dictated Date/Time: 01/02/21 8:03 am Reviewed By: Earnest Escobar MD Signed By: Earnest Escobar MD Signed Date/Time: 01/02/21 8:03 am Transcribed By: NANY Transcribed Date/Time: 01/02/21 8:02 am Vital Signs Most recent to oldest [Reference Range]: 1 2 3 Oxygen Saturation [94-100 %] 99 % (01/02/21 8:10 AM) 99 % (01/02/21 5:44 AM) 99 % (01/02/21 5:44 AM) Pulse Rate [55-90 bpm] 67 bpm (01/02/21 8:10 AM) 79 bpm (01/02/21 5:44 AM) 79 bpm (01/02/21 5:44 AM) Blood Pressure [90-138/55-84 mm Hg] 133/74mm Hg (01/02/21 8:10 AM) 140/69mm Hg *H* (01/02/21 5:44 AM) 140/69mm Hg *H* (01/02/21 5:44 AM) Respiratory Rate [16-30 br/min] 16 br/min (01/02/21 8:10 AM) 16 br/min (01/02/21 5:44 AM) 16 br/min (01/02/21 5:44 AM) Temperature [96.8-100.4 DegF] 98.9 DegF (01/02/21 8:17 AM) 98.4 DegF (01/02/21 5:44 AM) 79 DegF *L* (01/02/21 5:44 AM) Mode of Delivery (Oxygen) Room air (01/02/21 8:10 AM) Room air (01/02/21 5:44 AM) Room air (01/02/21 5:44 AM) Blood pressure sites Arm, right (01/02/21 8:10 AM) Arm, right (01/02/21 5:44 AM) Arm, right (01/02/21 5:44 AM) Temperature Route Oral (01/02/21 8:17 AM) Oral (01/02/21 5:44 AM) Oral (01/02/21 5:44 AM) Social History Social History Type Response Smoking Status Never (less than 100 in lifetime) entered on: 01/19/19 Sex
--- OUTSIDE RECORDS SUMMARY | 2022-12-29 18:03 | XMS_ITS | Continuity of Care Document ---
Author Name Unknown Organization [facility] Address [address] [place] [address]- Care Team Providers Care Animal Caretaker Name Role Phone Michael Kim MD Primary Care Physician [facility]s): 05/19/19 - 05/29/19 [facility] [address] [place] [address]- [facility] Attending Physician: Meghana Randall Admitting Physician: AdmMeghana [...] 30 Gm, 0 Refills, Maintenance, 05/24/19 18:40:00 [facility] [id number], apply a thin layer to face 1 [...]
--- OUTSIDE RECORDS SUMMARY | 2022-12-29 18:03 | XMS_ITS | Continuity of Care Document ---
Author Name Unknown Organization [facility] Address [address] [place] [address]- Care Team Providers Care Steam Plant Control Room Operator Name Role Phone Bassam MOTA, Ricky Marcus Primary Care Physician [phone] [facility]counter [facility] Date(s): 04/16/22 - 05/16/[address] [address]- Allergies, Adverse Reactions, Alerts Substance Reaction Severity [...] Gm, 0 Refills, Maintenance, 05/24/19 18:40:00 EST, [email or web address] #[id number], apply a thin layer to face 1 to 3 times per day as needed for itch., 155.1, cm,... Start Date: 05/24/19 Status: Ordered ibuprofen 800 mg oral tablet 800 mg, 1, tablet, By Mouth, Every 8 hours, # 30 tablet, Refills 0, Tot. Refills 0, Maintenance, 04/17/22 6:45:00 EST, Route to Pharmacy Electronically, [facility] #[id number], Partial fill uponpatient request if the prescription is for a schedu... Start Date: 04/17/22 Status: Ordered Multivitamins with Folic Acid 1 mg oral tablet 1 tablet, By Mouth, Daily, # 90 tablet, 2 Refills, Maintenance, 03/25/22 9:19:00 EST, [facility] #[id number], Partial fill upon patient request if the [...] Care Physician Member Role: PCP Address: Address: [address] [place] [address]- Care Team Related Persons Name: ANNA BAEZA Name: FELTON TAPIA Address: [address] [place] [address] Name: FEDE ALMARAZ Address: [address] [address]
--- OUTSIDE RECORDS SUMMARY | 2022-12-29 18:03 | XMS_ITS | Continuity of Care Document ---
Author Name Unknown Organization [facility] Asaf Ruelas n[facility] Address [address], [address] [place] [address]- Care Team Providers Care Armored Car Guard And Driver Name Role Phone Bassam MOTA, Ricky Marcus Primary Care Physician [facility] Date(s): 04/12/22 - 05/12/22 [facility] [address] [place] [address]- Allergies, Adverse Reactions, Alerts Substance Reaction Severity [...] Gm, 0 Refills, Maintenance, 05/24/19 18:40:00 EST, [facility] #[id number], apply a thin layer to face 1 to 3 times per day as needed for itch., 155.1, cm,... Start Date: 05/24/19 Status: Ordered ibuprofen 800 mg oral tablet 800 mg, 1, tablet, By Mouth, Every 8 hours, # 30 tablet, Refills 0, Tot. Refills 0, Maintenance, 04/17/22 6:45:00 EST, Route to Pharmacy Electronically, [facility] #[id number], Partial fill uponpatient request if the prescription is for a schedu... Start Date: 04/17/22 Status: Ordered Multivitamins with Folic Acid 1 mg oral tablet 1 tablet, By Mouth, Daily, # 90 tablet, 2 Refills, Maintenance, 03/25/22 9:19:00 EST, [facility] #[id number], Partial fill upon patient request if the [...] Team Personnel Name: Dottie Nicole RN Position: [facility] OB RN Member Role: Primary Care Nurse Name: Ricky Banegas MD Position: [facility] Primary Care Physician Member Role: PCP Address: Address: [address] [place] [address]- Care Team Related Persons Name: ANNA BAEZA Name: FELTON TAPIA Address: home [address] [place] [address] Name: FEDE ALMARAZ Address: [address] [address]
[2022-12-29 18:23] LABS: MANUAL DIFF FLAG NO
[2022-12-29 18:46] LABS: Alanine Aminotransferase 17 U/L (0-31); Albumin Level 3.7 g/dL (3.5-5.0); Alkaline Phosphatase 65 U/L (39-117); Anion Gap 11 (12-20); Aspartate Amino Transferase 12 U/L (5-31); Bilirubin Total 0.4 mg/dL (0.0-1.0); Blood Urea Nitrogen 12 mg/dL (9-16); Calcium 9.3 mg/dL (8.4-10.2); Carbon Dioxide 24 mmol/L (22-29); Chloride 106 mmol/L (96-108); Estimated Glomerular Filt Rate > 60; Glucose Random 98 mg/dL (60-115); HCG Quantitative 1729 mIU/mL; Lipase 10 U/L (8-78); Potassium 3.7 mmol/L (3.3-5.1); Sodium 137 mmol/L (135-145); Total Protein 6.7 g/dL (6.5-8.0)
[2022-12-29 18:49] LABS: Basophils Percent Auto 0.2 % (0-2); Eosinophils Absolute Auto 0.1 X10*3/uL (0.0-0.4); Eosinophils Percent Auto 0.8 % (0-4); Hematocrit 33.2 % (37.0-47.0); Hemoglobin 11.6 g/dl (12.0-16.0); Imm Gran Abs Auto 0.14 X10*3/uL (0.00-0.03); Imm Gran Pct Auto 1.3 % (0.0-0.4); Lymphocytes Absolute Auto 3.2 X10*3/uL (1.2-4.9); Mean Corpuscular HGB Conc 34.9 g/dl (31.0-35.0); Mean Corpuscular Hemoglobin 30.2 pg (27.0-33.0); Mean Corpuscular Volume 86.5 fL (80.0-98.0); Mean Platelet Volume 10.6 fL (9.4-12.3); Monocytes Absolute Auto 0.8 X10*3/uL (0.1-1.2); Monocytes Percent Auto 7.2 % (2-11); Neutrophils Absolute Auto 6.4 x10*3/uL (2.0-8.3); Neutrophils Percent Auto 60.5 % (45-73); Platelet Count 328 X10*3/uL (160-400); Red Blood Count 3.84 X10*6/uL (4.20-5.50); Red Cell Distribution Width 12.8 % (11.0-16.0); White Blood Count 10.7 X10*3/uL (4.8-10.8)
[2022-12-29 23:54] VITALS: BP 95/53; PULSE 88; RESP 18; TEMP 36.8; O2SAT 98
== END 2022-12-30 00:21 | disposition home or self-care (01) ==
PROVIDERS: Physician Assistant; Emergency Provider Emergency Medicine
DX: O03.9 Complete or unspecified spontaneous abortion without complication (principal); N92.6 Irregular menstruation, unspecified; R10.2 Pelvic and perineal pain; Z79.899 Other long term (current) drug therapy
CPT/HCPCS: 36415; 76830; 76856; 80053; 83690; 84702; 85025; 86850; 86900; 86901; 99284

== ENCOUNTER 2022-12-31 12:09 | Emergency (ER) | payer OTHER, SELFPAY ==
--- NOTE | ~2022-12-31 | US_ITS ---
EXAMINATION: US OBSTETRICAL ULTRASOUND CLINICAL INFORMATION: Vaginal bleeding. Positive test. Decreasing beta hCG COMPARISON: Previous exam 12/29/2022 LMP: Unknown. Gestational age by maternal dates is . Estimated date of delivery by maternal dates is . TECHNIQUE: Transabdominal and transvaginal pelvic ultrasound. Transvaginal exam was performed for better visualization of the uterus and ovaries. FINDINGS: The uterus is anteverted and measures 9.6 x 4 x 6.4 cm in dimension. Endometrial thickness measures 1.6 cm. The endometrium is heterogeneous with solid and cystic areas and hypervascular anteriorly. This is increased from 12/29/2022 exam. The cervix is normal appearing. Clot or mass is seen in the endocervical canal on 12/29/2022 exam is no longer seen. The ovaries are seen transabdominally. The right ovary measures 3 x 1.8 x 1.3 cm in the left ovary measures 3.4 x 1.4 x 1.7 cm. The ovaries are normal-appearing. No fluid is seen in the cul-de-sac. US/US OB pelvic and transvaginal IMPRESSION: Slightly thickened very heterogeneous hypervascular endometrium. No intrauterine seen. Appearance is questionable for spontaneous . Differential would include gestational trophoblastic disease. Follow-up ultrasound would be recommended the patient continues to bleed or quantitative beta hCG levels do not decrease. Mass in the endocervical canal no longer seen. This probably represented blood clot.
[2022-12-31 13:37] VITALS: BP 145/95; PULSE 75; RESP 20; TEMP 36.3; O2SAT 100; BMI 32.4
--- NOTE | 2022-12-31 13:38 | ED.GENADULT ---
HPI - General Adult General Chief complaint: Vaginal Bleeding Stated complaint: ? Miscarriage Time Seen by Provider: 12/31/22 13:58 Source: patient Mode of arrival: ambulatory Limitations: no limitations History of Present Illness HPI narrative: 27-year-old female presents to the ER for re-evaluation of a miscarriage. She was initially seen here on 12/29 after she had heavy vaginal bleeding with clots. She thought it was her menstrual cycle but the bleeding was significant so she came to the ER. Patient was found to be with a beta hCG of 1700. Ultrasound at the time did not show an intrauterine or any mention of a adnexal mass. There was a 2 cm avascular mass like abnormality in the endocervical canal. There was also a motion of degrees in the endometrium and endocervical canal. She was advised come back to the ER for repeat hCG in 2 days. Patient reports last night when she was in the shower she passed a very large blood clot. She was feeling abdominal cramping and pelvic cramping and nausea. No lightheadedness or dizziness. No chest pain or shortness of breath. She is feeling better today and bleeding has significantly slowed down. She only has some slight spotting. complaint: HCG trend, vaginal bleeding Onset (ago): day(s) Location: pelvis and genitals Radiation: non-radiation Severity: moderate Quality: other (cramping) Pain Consistency: intermittent Relieving factors: none Exacerbating factors: none Associated symptoms: denies other symptoms Treatments prior to arrival: none Related Data Previous Rx's Medication Instructions Recorded ferrous sulfate 324 mg (65 mg 324 mg PO BID #60 tabs 12/31/22 iron) tablet,delayed release Allergies Allergy/AdvReac Type Severity Reaction Status Date / Time codeine Allergy Mild Hives Verified 12/31/22 13:36 Review of Systems Review of Systems: Yes all other systems are reviewed and are negative [facility] Social History Social History Alcohol intake: current Alcohol intake frequency: a few times a month Substance Use Type: Marijuana Advance Directives: No Advance Directives Information Provided: No Physical Exam ED Vital Signs: Vital Signs - 24 hr 12/31/22 13:37 12/31/22 17:22 Temperature 97.3 F Pulse Rate 75 75 Respiratory Rate 20 19 Blood Pressure 145/95 H 124/76 Pulse Oximetry 100 98 Oxygen Delivery Method Room Air BMI result Body Mass Index 32.4 Appearance: Alert. Oriented X3. No acute distress. Head: normocephalic, atraumatic. Eyes: Pupils equal, round and reactive to light. ENT: Pharynx normal. No tonsillar swelling or exudate. Neck: Normal inspection. Neck supple. CVS: Normal heart rate and rhythm. Pulses normal. Respiratory: No respiratory distress. Breath sounds normal. Abdomen: Soft and nontender. +BS x4. Pelvic deferred Skin: Skin warm and dry. Normal skin color. Normal skin turgor. No rashes. Extremities: No lower extremity edema. No joint swelling. Neuro/psych: Oriented X 3. No motor deficit. No sensory deficit. CN II-XII intact. Normal speech and cognition. Course Course Course Narrative: This is a rapid medical exam: Additional HPI, ROS, PE not included below will be deferred to primary provider. Patient is a 27-year-old female presenting to the emergency department with vaginal bleeding with clots. Patient was seen in this ED on 12/29 and instructed to follow up with [facility] SPECIALIST or return here if unable to see SOCIAL MEDIA SPECIALIST. HCG was 1729 on 12/29. Plan: labs Medical Decision Making Medical Decision Making MDM Narrative: 27 yo female presenting for re-evaluation of a spontaneous . Significant passage of blood clots and presumed products of conception at home last night. No active vaginal bleeding at this time. VSS and patient feels well. her H/H did trend down significantly. Her HCG also trended down. US today showed no retained products, no IUP. blood type O+ given patient is asymptomatic from her blood loss will defer transfusion today. Patient was counseled on her lab results and concern for potentially needing a blood transfusion in the future if her bleeding were to recur or worsen. Patient expressed understanding. She was encouraged to follow-up with OBGYN for repeat hCG level to ensure that it goes to 0 as well repeat H&H to ensure she does not have worsening anemia. Patient expressed understanding all questions were answered. Comfortable discharge home given she is asymptomatic case was d/w Dr. Valadez. (Dr. Craig on vacation, no OB coverage at this time) Differential Diagnosis Differential Diagnoses: The differential diagnosis associated with the presentation includes ectopic , spontaneous , incomplete , acute blood loss anemia Admission/Observation Consideration of admission/observation: Escalation of care including admission/observation considered acute blood loss considered transfusion and admission Lab Data MDM Lab Attestation statement: I reviewed the patient's lab results. acute blood loss compared to 48 hours ago 12/31/22 16:41 Labs: Lab Results 12/31/22 12/31/22 12/31/22 Range/Units 14:27 14:27 16:41 WBC 8.3 8.0 (4.8-10.8) X10*3/uL RBC 2.83 L D 2.79 L (4.20-5.50) X10*6/uL Hgb 8.3 L D 8.2 L (12.0-16.0) g/dl Hct 24.8 L D 24.3 L (37.0-47.0) % MCV 87.6 87.1 (80.0-98.0) fL MCH 29.3 29.4 (27.0-33.0) pg MCHC 33.5 33.7 (31.0-35.0) g/dl RDW 13.0 13.0 (11.0-16.0) % Plt Count 233 D 221 (160-400) X10*3/uL MPV 10.0 10.0 (9.4-12.3) fL Immature Gran % (Auto) 1.1 H 1.0 H (0.0-0.4) % Neut % (Auto) 55.4 55.4 (45-73) % Lymph % (Auto) 35.7 36.4 (20-40) % Prentiss % (Auto) 6.4 5.5 (2-11) % Eos % (Auto) 1.2 1.3 (0-4) % Baso % (Auto) 0.2 0.4 (0-2) % Lymph # (Auto) 3.0 2.9 (1.2-4.9) X10*3/uL Prentiss # (Auto) 0.5 0.4 (0.1-1.2) X10*3/uL Eos # (Auto) 0.1 0.1 (0.0-0.4) X10*3/uL Baso # (Auto) 0.0 0.0 (0.0-0.2) X10*3/uL Abs Immat Gran (auto) 0.09 H 0.08 H (0.00-0.03) X10*3/uL Absolute Neuts (auto) 4.6 4.4 (2.0-8.3) x10*3/uL Absolute Nucleated RBC 0.000 0.000 (0.0-0.012) X10*3/uL Nucleated RBC % (auto) 0.0 0.0 (0.0-0.2) /100WBC Beta HCG, Quant 389 mIU/mL Independent Interpretation I performed an independent interpretation of an: Ultrasound Interpretation: US without IUP, agree w/ radiology read Radiology Impression Discussion of test interpretation with radiology: I have reviewed the radiologist's reading. Radiologist Impression: EXAMINATION:? US OBSTETRICAL ULTRASOUND CLINICAL INFORMATION:? Vaginal bleeding. Positive test. Decreasing beta hCG COMPARISON:? Previous exam 12/29/2022? LMP: Unknown. Gestational age by maternal dates is . Estimated date of delivery by maternal dates is . TECHNIQUE: Transabdominal and transvaginal pelvic ultrasound. Transvaginal exam was performed for better visualization of the uterus and ovaries. ? FINDINGS: The uterus is anteverted and measures 9.6 x 4 x 6.4 cm in dimension. Endometrial thickness measures 1.6 cm. The endometrium is heterogeneous with solid and cystic areas and hypervascular anteriorly. This is increased from 12/29/2022 exam. The cervix is normal appearing. Clot or mass is seen in the endocervical canal on 12/29/2022 exam is no longer seen. The ovaries are seen transabdominally. The right ovary measures 3 x 1.8 x 1.3 cm in the left ovary measures 3.4 x 1.4 x 1.7 cm. The ovaries are normal-appearing. No fluid is seen in the cul-de-sac. US/US OB pelvic and transvaginal IMPRESSION: Slightly thickened very heterogeneous hypervascular endometrium. No intrauterine seen. Appearance is questionable for spontaneous . Differential would include gestational trophoblastic disease. Follow-up ultrasound would be recommended the patient continues to bleed or quantitative beta hCG levels do not decrease. Mass in the endocervical canal no longer seen. This probably represented blood clot. External Record Review External record reviewed: Outpatient record and Prior outpatient labs Prescription Management I considered prescription management with: Pain Medication and Other (iron supplementation) Critical Care Time Critical Care Time Critical Care Time: Yes Total Critical Care Time: 36 Attestation: I have personally provided critical care time exclusive of time spent on separately billable procedures. Time includes review of lab data, radiology results, trending of labs, and monitoring for potential decompensation. Intervention performed as documented. Discharge Plan Discharge Clinical Impression: Acute blood loss anemia, Spontaneous miscarriage Patient Disposition: Home, Self-Care Instructions: Miscarriage (ED), Anemia (ED) Additional Instructions: Your blood counts today showed significant anemia compared to 2 days ago. This is from your miscarriage. Your hormone came down nicely and your ultrasound did not show any evidence of retained products. Recommend iron supplementation. Recommend following up with [facility] SPECIALIST for repeat hormone - need to make sure it goes all the way to 0. You also need to monitor your blood counts to make sure they do not trend down any further or you may need a blood transfusion. If you develop worsening vaginal bleeding, dizziness, chest pain, fatigue, shortness of breath or any other concerning symptoms call 911 or come back to the ER for further evaluation. Prescriptions: New ferrous sulfate 324 mg (65 mg iron) tablet,delayed release (DR/EC) 324 mg PO BID Qty: 60 0RF Referrals: Rui Craig MD [Physician] - Interventions: ED Discharge Assessment Last Done: 12/31/22 17:31 Discharge Date/Time: 12/31/22 17:31
[2022-12-31 14:30] LABS: MANUAL DIFF FLAG NO
[2022-12-31 14:32] LABS: Basophils Percent Auto 0.2 % (0-2); Eosinophils Absolute Auto 0.1 X10*3/uL (0.0-0.4); Eosinophils Percent Auto 1.2 % (0-4); Hematocrit 24.8 % (37.0-47.0); Hemoglobin 8.3 g/dl (12.0-16.0); Imm Gran Abs Auto 0.09 X10*3/uL (0.00-0.03); Imm Gran Pct Auto 1.1 % (0.0-0.4); Lymphocytes Percent Auto 35.7 % (20-40); Mean Corpuscular HGB Conc 33.5 g/dl (31.0-35.0); Mean Corpuscular Hemoglobin 29.3 pg (27.0-33.0); Mean Corpuscular Volume 87.6 fL (80.0-98.0); Monocytes Absolute Auto 0.5 X10*3/uL (0.1-1.2); Monocytes Percent Auto 6.4 % (2-11); Neutrophils Absolute Auto 4.6 x10*3/uL (2.0-8.3); Neutrophils Percent Auto 55.4 % (45-73); Platelet Count 233 X10*3/uL (160-400); Red Blood Count 2.83 X10*6/uL (4.20-5.50); White Blood Count 8.3 X10*3/uL (4.8-10.8)
[2022-12-31 15:00] LABS: HCG Quantitative 389 mIU/mL
[2022-12-31 16:44] LABS: MANUAL DIFF FLAG NO
[2022-12-31 16:48] LABS: Basophils Percent Auto 0.4 % (0-2); Eosinophils Absolute Auto 0.1 X10*3/uL (0.0-0.4); Eosinophils Percent Auto 1.3 % (0-4); Hematocrit 24.3 % (37.0-47.0); Hemoglobin 8.2 g/dl (12.0-16.0); Imm Gran Abs Auto 0.08 X10*3/uL (0.00-0.03); Lymphocytes Absolute Auto 2.9 X10*3/uL (1.2-4.9); Lymphocytes Percent Auto 36.4 % (20-40); Mean Corpuscular HGB Conc 33.7 g/dl (31.0-35.0); Mean Corpuscular Hemoglobin 29.4 pg (27.0-33.0); Mean Corpuscular Volume 87.1 fL (80.0-98.0); Monocytes Absolute Auto 0.4 X10*3/uL (0.1-1.2); Monocytes Percent Auto 5.5 % (2-11); Neutrophils Absolute Auto 4.4 x10*3/uL (2.0-8.3); Neutrophils Percent Auto 55.4 % (45-73); Platelet Count 221 X10*3/uL (160-400); Red Blood Count 2.79 X10*6/uL (4.20-5.50)
[2022-12-31 17:22] VITALS: BP 124/76; PULSE 75; RESP 19; O2SAT 98
--- NOTE | 2022-12-31 17:22 | PC.NURSE ---
alert, speech clear, skin wpd, no dizziness, nad, no bleeding since yesterday
== END 2022-12-31 17:31 | disposition home or self-care (01) ==
PROVIDERS: Physician Assistant; Registered Nurse Emergency; Emergency Provider Emergency Medicine Emergency Medical Services
DX: O03.9 Complete or unspecified spontaneous abortion without complication (principal); D50.0 Iron deficiency anemia secondary to blood loss (chronic); Z79.899 Other long term (current) drug therapy
CPT/HCPCS: 36415; 76801; 76817; 84702; 85025; 99282; 99284

== ENCOUNTER 2023-01-03 10:22 | Emergency (ER) | payer OTHER, SELFPAY ==
--- NOTE | ~2023-01-03 | US_ITS ---
EXAMINATION:US OB pelvic and transvaginal CLINICAL INFORMATION: Reason for Exam ? retained product COMPARISON: No priors available. LMP: Unknown FINDINGS: UTERUS: The uterus is anteverted. Uterine mass: There is no uterine mass. Cervix: Grossly unremarkable. Endometrium: No intrauterine gestational sac, hypertrophic endometrium endometrial thickness measures 1 cm ADNEXA: Normal Right ovary: Normal in size. Left ovary: Normal in size. Doppler exam: Normal Doppler flow identified in both ovaries. FREE FLUID: Trace amount of free fluid. OTHER FINDINGS: None US/US OB pelvic and transvaginal IMPRESSION: No intrauterine gestational sac or pole found. Mildly thickened heterogeneous hypertrophic endometrium. Trace amount of free fluid.
[2023-01-03 10:36] VITALS: BP 139/87; PULSE 71; RESP 16; TEMP 37.1; O2SAT 99; BMI 32.7
[2023-01-03 10:58] LABS: MANUAL DIFF FLAG NO
[2023-01-03 11:02] LABS: Basophils Percent Auto 0.3 % (0-2); Eosinophils Absolute Auto 0.1 X10*3/uL (0.0-0.4); Eosinophils Percent Auto 1.4 % (0-4); Hematocrit 22.7 % (37.0-47.0); Hemoglobin 7.4 g/dl (12.0-16.0); Imm Gran Abs Auto 0.08 X10*3/uL (0.00-0.03); Imm Gran Pct Auto 1.1 % (0.0-0.4); Lymphocytes Absolute Auto 2.3 X10*3/uL (1.2-4.9); Mean Corpuscular HGB Conc 32.6 g/dl (31.0-35.0); Mean Corpuscular Hemoglobin 29.8 pg (27.0-33.0); Mean Corpuscular Volume 91.5 fL (80.0-98.0); Monocytes Absolute Auto 0.5 X10*3/uL (0.1-1.2); Monocytes Percent Auto 7.1 % (2-11); Neutrophils Absolute Auto 4.2 x10*3/uL (2.0-8.3); Neutrophils Percent Auto 58.1 % (45-73); Platelet Count 272 X10*3/uL (160-400); Red Blood Count 2.48 X10*6/uL (4.20-5.50); Red Cell Distribution Width 13.9 % (11.0-16.0); White Blood Count 7.2 X10*3/uL (4.8-10.8)
[2023-01-03 11:24] LABS: Alanine Aminotransferase 42 U/L (0-31); Alkaline Phosphatase 68 U/L (39-117); Anion Gap 11 (12-20); Aspartate Amino Transferase 40 U/L (5-31); Bilirubin Total 0.2 mg/dL (0.0-1.0); Blood Urea Nitrogen 8 mg/dL (9-16); Calcium 9.1 mg/dL (8.4-10.2); Carbon Dioxide 24 mmol/L (22-29); Chloride 111 mmol/L (96-108); Creatinine Clr Calc Pharmacy 112.4; Estimated Glomerular Filt Rate > 60; Glucose Random 102 mg/dL (60-115); Potassium 3.5 mmol/L (3.3-5.1); Sodium 142 mmol/L (135-145); Total Protein 6.7 g/dL (6.5-8.0)
[2023-01-03 11:26] LABS: HCG Quantitative 101 mIU/mL
--- NOTE | 2023-01-03 12:45 | ED_ITS ---
HPI - General Adult General Chief complaint: General Medical Stated complaint: blood transfusion? Time Seen by Provider: 01/03/23 12:23 Source: patient Mode of arrival: ambulatory Limitations: no limitations History of Present Illness HPI narrative: This is a 27 years old female presented to the emergency department complaining of generalized weakness shortness of breath. She was seen in the emergency room of December 29 the for miscarriage, she was again December 31, she states that the bleeding is minimal at this point. HCG is been going down. Onset (ago): day(s) (2) Radiation: non-radiation Severity: mild Relieving factors: none Exacerbating factors: none Related Data Previous Rx's Medication Instructions Recorded ferrous sulfate 324 mg (65 mg 324 mg PO BID #60 tabs 12/31/22 iron) tablet,delayed release Allergies Allergy/AdvReac Type Severity Reaction Status Date / Time codeine Allergy Mild Hives Verified 01/03/23 10:36 Review of Systems Constitutional: Constitutional: Reports no additional constitutional complaints PMFSH Past Medical History PMFSH Narrative: Miscarriage Social History Social History Alcohol intake: current Alcohol intake frequency: does not drink Smoked in Last 30 Days: Yes Use of substances other than those prescribed or required for medical reasons: Yes Substance Use Type: Marijuana Substance Use Frequency: Daily Last Used Substance: Hours (ago) Advance Directives: No Advance Directives Information Provided: No Physical Exam ED Vital Signs: Vital Signs - 24 hr 01/03/23 10:36 01/03/23 14:21 01/03/23 14:38 Temperature 98.8 F 98.2 F 98.2 F Pulse Rate 71 59 85 Respiratory Rate 16 16 18 Blood Pressure 139/87 118/69 118/69 Pulse Oximetry 99 100 Oxygen Delivery Method Room Air Room Air 01/03/23 14:52 01/03/23 14:54 01/03/23 16:26 Temperature 98.4 F 98.6 F 98.6 F Pulse Rate 74 75 66 Respiratory Rate 18 18 18 Blood Pressure 127/66 128/84 141/82 H Pulse Oximetry Oxygen Delivery Method BMI result Body Mass Index 32.7 Const General: cooperative Nutritional Appearance: well nourished Orientation/consciousness: patient oriented x3 Limitations: no limitations HENMT Head: Yes normal to inspection Ears: hearing grossly normal bilaterally General nose exam: Normal external nose present Face and sinus: Yes normal facial exam Mouth: Normal oral and palatal mucosa present Neck Neck: Yes normal visual inspection Chest Chest palpation & inspection: normal inspection of the chest Resp Effort & Inspection: normal respiratory effort Auscultation: clear to auscultation bilaterally Cardio Jugular venous distension: no JVD Rate: regular rate Rhythm: regular rhythm GI Inspection: Yes normal to inspection Palpation (GI): Soft to palpation, not firm and nontender Percussion: Yes normal to percussion Other: on pelvic exam no bleeding ,cervix closed General: Yes Bimanual renal exam normal bilaterally External Female Exam: normal external appearance Speculum Exam - Vagina: normal appearance of the vagina Speculum Exam - Cervix: normal appearance of the cervix and Cervical os closed Skin General skin exam: no rashes or lesions noted Neuro General: patient oriented x3 Course Reevaluation(s) Reevaluation #1: DOing well receiving transfusion,anticipate discharge after transfusion HCG going down,On exam no bleeding,US nonretained product Time: 16:48 Medications Administered Discontinued Medications Generic Name Dose Route Start Last Admin Trade Name Freq PRN Reason Stop Dose Admin Sodium Chloride 100 mls @ 100 mls/hr 01/03/23 12:37 01/03/23 15:56 Ns IV 01/03/23 13:36 100 mls/hr ONCE ONE Administration Procedures EJ/Peripheral Line Arm R: Time Out Performed: Yes Skin Cleansed in Sterile Fashion: Yes Size (gauge): 18 IV Secured and Dressing Applied: Yes Patient Tolerated Procedure: well (I was asked by the RN to place peripheral IV, multiple attemp by RN and successful, under ultrasound-guided cannulated the right deep brachial vein with the 18 gauge catheter intocan , good blood flow good flash) Medical Decision Making Medical Decision Making MDM Narrative: pt presented with weakness and anemia after recent miscarriage. HCG going down will transfuse and reasses @ 4p US no retained product,vaginal exam no bleeding,HCG downtrending pt can be d/c after transfusion ,she is very confortable with the plan of care Differential Diagnosis Differential Diagnoses: The differential diagnosis associated with the presentation includes retained product conception/bleeding Admission/Observation Consideration of admission/observation: Escalation of care including admission/observation considered Lab Data MDM Lab Attestation statement: I reviewed the patient's lab results. 01/03/23 10:48 01/03/23 10:48 Labs: Lab Results 01/03/23 01/03/23 01/03/23 Range/Units 10:48 10:48 12:33 WBC 7.2 (4.8-10.8) X10*3/uL RBC 2.48 L (4.20-5.50) X10*6/uL Hgb 7.4 L (12.0-16.0) g/dl Hct 22.7 L (37.0-47.0) % MCV 91.5 (80.0-98.0) fL MCH 29.8 (27.0-33.0) pg MCHC 32.6 (31.0-35.0) g/dl RDW 13.9 (11.0-16.0) % Plt Count 272 (160-400) X10*3/uL MPV 10.0 (9.4-12.3) fL Immature Gran % (Auto) 1.1 H (0.0-0.4) % Neut % (Auto) 58.1 (45-73) % Lymph % (Auto) 32.0 (20-40) % Whitman % (Auto) 7.1 (2-11) % Eos % (Auto) 1.4 (0-4) % Baso % (Auto) 0.3 (0-2) % Lymph # (Auto) 2.3 (1.2-4.9) X10*3/uL Whitman # (Auto) 0.5 (0.1-1.2) X10*3/uL Eos # (Auto) 0.1 (0.0-0.4) X10*3/uL Baso # (Auto) 0.0 (0.0-0.2) X10*3/uL Abs Immat Gran (auto) 0.08 H (0.00-0.03) X10*3/uL Absolute Neuts (auto) 4.2 (2.0-8.3) x10*3/uL Absolute Nucleated RBC 0.000 (0.0-0.012) X10*3/uL Nucleated RBC % (auto) 0.0 (0.0-0.2) /100WBC Sodium 142 (135-145) mmol/L Potassium 3.5 (3.3-5.1) mmol/L Chloride 111 H (96-108) mmol/L Carbon Dioxide 24 (22-29) mmol/L Anion Gap 11 L (12-20) BUN 8 L (9-16) mg/dL Creatinine 0.72 (0.5-1.4) mg/dL Estim Creat Clear Calc 112.4 Estimated GFR > 60 Random Glucose 102 (60-115) mg/dL Calcium 9.1 (8.4-10.2) mg/dL Total Bilirubin 0.2 (0.0-1.0) mg/dL AST 40 H (5-31) U/L ALT 42 H (0-31) U/L Alkaline Phosphatase 68 (39-117) U/L Total Protein 6.7 (6.5-8.0) g/dL Albumin 4.0 (3.5-5.0) g/dL Beta HCG, Quant 101 mIU/mL Blood Type O Positive Antibody Screen NEGATIVE Crossmatch See Detail Independent Interpretation I performed an independent interpretation of an: Ultrasound Interpretation: no retained product Radiology Impression Discussion of test interpretation with radiology: I have reviewed the radiologist's reading. Radiologist Impression: no retained product External Record Review External record reviewed: Inpatient record Discharge Plan Discharge Clinical Impression: Anemia, Complete miscarriage Patient Disposition: Home, Self-Care Additional Instructions: Follow-up with your primary care physician return to emergency room if you feeli ng worse. You told as you know bleeding anymore but a few bleeding with changing more than a pad an hour you should come back to the emergency department Prescriptions: No Action ferrous sulfate 324 mg (65 mg iron) tablet,delayed release (DR/EC) 324 mg PO BID Qty: 60 0RF Referrals: Rui Craig MD [Physician] - 1 week Interventions: ED Discharge Assessment Last Done: 01/03/23 16:34 Discharge Date/Time: 01/03/23 16:36
[2023-01-03 14:21] VITALS: BP 118/69; PULSE 59; RESP 16; TEMP 36.8; O2SAT 100
[2023-01-03 14:38] VITALS: BP 118/69; PULSE 85; RESP 18; TEMP 36.8
[2023-01-03 14:52] VITALS: BP 127/66; PULSE 74; RESP 18; TEMP 36.9
[2023-01-03 14:54] VITALS: BP 128/84; PULSE 75; RESP 18; TEMP 37
[2023-01-03 16:26] VITALS: BP 141/82; PULSE 66; RESP 18; TEMP 37
== END 2023-01-03 16:36 | disposition home or self-care (01) ==
PROVIDERS: Emergency Provider Emergency Medicine
DX: O99.019 Anemia complicating pregnancy, unspecified trimester (principal); D64.9 Anemia, unspecified; R53.1 Weakness; R06.02 Shortness of breath; Z79.899 Other long term (current) drug therapy; Z3A.00 Weeks of gestation of pregnancy not specified
CPT/HCPCS: 36415; 36430; 36556; 76801; 76817; 80053; 84702; 85025; 86850; 86900; 86901; 86923; 99284; 99285; P9016

== ENCOUNTER 2023-01-11 10:02 | Outpatient (REF) | payer OTHER, SELFPAY ==
[2023-01-11 15:03] LABS: HCG Quantitative 11 mIU/mL
== END 2023-01-11 10:03 | disposition home or self-care (01) ==
LOC: HO.LAB 10:02
PROVIDERS: Visit Provider Advanced Practice Midwife
DX: O03.9 Complete or unspecified spontaneous abortion without complication (principal)
CPT/HCPCS: 36415; 84702

== ENCOUNTER 2023-01-12 07:41 | Outpatient (REF) | payer OTHER, SELFPAY ==
[2023-01-12 08:12] LABS: HCG Quantitative 8 mIU/mL
[2023-01-12 14:50] LABS: Hematocrit 30.3 % (37.0-47.0); Hemoglobin 10.3 g/dl (12.0-16.0); Mean Corpuscular Hemoglobin 30.3 pg (27.0-33.0); Mean Corpuscular Volume 89.1 fL (80.0-98.0); Mean Platelet Volume 10.2 fL (9.4-12.3); Platelet Count 336 X10*3/uL (160-400); Red Cell Distribution Width 13.7 % (11.0-16.0); White Blood Count 7.5 X10*3/uL (4.8-10.8)
[2023-01-12 18:00] LABS: CT PCR NOT DETECTED (Not Detect.); NG PCR NOT DETECTED (Not Detect.)
[2023-01-12 18:07] LABS: HCG Quantitative 10 mIU/mL
== END 2023-01-12 07:42 | disposition home or self-care (01) ==
LOC: HO.LAB 07:41
PROVIDERS: Absent Provider Obstetrics & Gynecology; Visit Provider Advanced Practice Midwife
DX: O03.9 Complete or unspecified spontaneous abortion without complication (principal)
CPT/HCPCS: 0353U; 36415; 84702; 85027; 99202

== ENCOUNTER 2023-01-12 13:19 | Outpatient (AMB) | payer OTHER, SELFPAY ==
--- NOTE | 2023-01-12 13:31 | A.OFFVIS_ITS ---
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 The patient was seen in the ER was diagnosis severe symptomatic anemia and received a unit of blood transfusion. Since then hCG went down to 101 on 12/27, to 11 on 01/11 and down to 8 today. The patient is doing well with minimal bleeding and or cramping. Blood type is O positive [facility] Social History Alcohol intake: current Alcohol intake frequency: does not drink Substance Use Type: Marijuana Female Reproductive History Menstrual Age of Menarche: 14 Duration of menses: 3-5 days control method: none Total pregnancies: 3 Full term: 1 Number of Living Children: 1 Ab induced: 1 Ab spontaneous: 1 Review of Systems Const All systems reviewed & are unremarkable except as noted in HPI and below Physical Exam Vital Signs: Last Vital Signs BP 114/70 01/12/23 13:32 BMI result Body Mass Index 33.4 General: Yes no CVA tenderness External Female Exam: normal external appearance and normal appearance of the urethra Speculum Exam - Vagina: normal appearance of the vagina, normal palpation, no lesions and no masses Speculum Exam - Cervix: normal appearance of the cervix, normal palpation, no lesions, no masses and nontender Bimanual exam- vagina & uterus: normal bimanual exam, normal palpation, uterine size normal, normal palpation, uterine shape normal, No Cervical tenderness present and non-tender Bimanual Exam- Adnexa, other: normal adnexae Back/Spine/Pelvis Back: no CVA tenderness Assessment & Plan Assessment & Plan (1) Complete : Code(s): O03.9 - Complete or unspecified spontaneous without complication Plan: Discussed with the patient the finding on physical exam and her clinical progress with a dropping HCG is pointing towards complete . Signs and symptoms of incomplete were discussed with the patient, she is to go to the emergency room or call in case of pelvic cramping and/ or bleeding. Repeat CBC today, iron sulfate 325 mg p.o. t.i.d. for 8 weeks, repeat hCG in 2 weeks and instruction given to patient to schedule a 2 week follow-up appointment. All questions answered, the patient verbalized understanding Orders: Orders Complete Blood Count no Diff Today O03.9 - Complete or unspecified spontaneous without complication HCG Quantitative 2 Weeks O03.9 - Complete or unspecified spontaneous without complication CT NG by PCR Today O03.9 - Complete or unspecified spontaneous without complication Coding Level of Care Code New Pt Level 3 (13516) Diagnoses Complete O03.9
[2023-01-12 13:32] VITALS: BP 114/70; BMI 33.4
== END 2023-01-12 13:59 | disposition home or self-care (01) ==
PROVIDERS: Visit Provider Obstetrics & Gynecology
DX: O03.9 Complete or unspecified spontaneous abortion without complication (principal)
CPT/HCPCS: 99203

== ENCOUNTER 2023-01-12 13:58 | Outpatient (REF) | payer OTHER, SELFPAY | END 2023-01-12 13:59 | disposition home or self-care (01) | LOC: HO.LNP 13:58 | PROVIDERS: Visit Provider Obstetrics & Gynecology | DX: Z13.89 Encounter for screening for other disorder (principal) ==

== ENCOUNTER 2023-01-28 08:05 | Outpatient (REF) | payer OTHER, SELFPAY ==
[2023-01-28 08:58] LABS: HCG Quantitative < 2 mIU/mL
== END 2023-01-28 08:06 | disposition home or self-care (01) ==
LOC: HO.LAB 08:05
PROVIDERS: Visit Provider Obstetrics & Gynecology
DX: O03.9 Complete or unspecified spontaneous abortion without complication (principal)
CPT/HCPCS: 36415; 84702

== ENCOUNTER 2023-02-01 08:05 | Outpatient (AMB) | payer OTHER, SELFPAY ==
--- NOTE | 2023-02-01 08:06 | A.OFFVIS_ITS ---
Intake Vital Signs 02/01/23 08:08 Height 5 ft Weight 169 lb 12.095 oz BMI 33.1 BP 120/70 Intake Visit Reasons: 2 week HCG follow up Ambulance Assistant Required: No Information Interpreted: non-clinical & clinical Accompanied by: Self / Same As Patient Allergies codeine Allergy (Mild, Verified 02/01/23 08:08) Hives HPI HPI Comments History of Present Illness Details Presenting for follow-up. HCG done on 01/28 was less than 2. H&H on 01/12 was 10.3/30.5. GC/CT were negative The patient on iron sulfate, CBC ordered to be repeated in few weeks . REPLACED BY [facility] Social History Alcohol intake: current Alcohol intake frequency: does not drink Substance Use Type: Marijuana Female Reproductive History Menstrual Age of Menarche: 14 Review of Systems Const All systems reviewed & are unremarkable except as noted in HPI and below Reports as per HPI and Reports no additional complaints GI Reports no additional complaints Reports no additional complaints Physical Exam Vital Signs: Last Vital Signs BP 120/70 02/01/23 08:08 BMI result Body Mass Index 33.1 Assessment & Plan Assessment & Plan (1) Complete : Code(s): O03.9 - Complete or unspecified spontaneous without complication Plan: Discussed with the patient the results of hCG being less than 2, and GC and chlamydia negative. Recommended to stay on iron sulfate for a total of 8 weeks, repeat CBC afterwards. Instructions given the patient to schedule annual exam within 3 months. Offer the patient different options of control, the patient declined at this point. All questions answered, the patient verbalized understanding. Coding Level of Care Code Est Pt Level 3 (63360) Diagnoses Complete O03.9
[2023-02-01 08:08] VITALS: BP 120/70; BMI 33.1
== END 2023-02-01 08:16 | disposition home or self-care (01) ==
PROVIDERS: Visit Provider Obstetrics & Gynecology
DX: O03.9 Complete or unspecified spontaneous abortion without complication (principal)
CPT/HCPCS: 99213

== ENCOUNTER → 2023-02-01 08:05 | Outpatient (BNVA) | payer OTHER, SELFPAY | PROVIDERS: Visit Provider Obstetrics & Gynecology | DX: O03.9 Complete or unspecified spontaneous abortion without complication (principal) | CPT/HCPCS: 99212 ==

== ENCOUNTER 2023-10-24 22:39 | Emergency (ER) | payer OTHER, SELFPAY ==
[2023-10-24 23:26] VITALS: BP 152/91; PULSE 75; RESP 16; TEMP 36.6; O2SAT 100; BMI 30.2
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
--- OUTSIDE RECORDS SUMMARY | 2023-10-25 00:54 | XMS_ITS | Continuity of Care Document ---
Author Organization [facility] Address [address] [place] [address]- Care Team Providers Care Mirror Silverer Name Role Phone Jenny Valente MD Primary Care Physician Encounter [facility] Date(s): 01/13/23 - 03/23/[address] [address]- Attending Physician: Judd Gerber MD Allergies, Adverse Reactions, Alerts Substance Reaction Severity Status codeine rash Active Immunizations Given and Recorded Vaccine Date Status Refusal Reason influenza virus vaccine, inactivated 02/14/23 Give n influenza virus vaccine, inactivated 02/04/17 Give n influenza virus vaccine, inactivated 04/04/12 Give n influenza virus vaccine, inactivated 1 07/08/10 Gi licha SARS-CoV-2 (COVID-19) mRNA-1273 vaccine 04/25/21 R ecorded SARS-CoV-2 (COVID-19) mRNA-1273 vaccine 03/28/21 R ecorded tetanus/diphtheria/pertussis, acel(Tdap) 12/24/16 Given tetanus/diphtheria/pertussis, acel(Tdap) 2 [...] RN 25Admin Note: GIVEN BY RN Medications escitalopram 10 mg oral tablet 1 tablet = 10 mg, By Mouth, Daily, take daily for mood, # 30 tablet, 2 Refills, Maintenance, 01/13/23 13:33:00 EDT, Tablet, [facility] #[id number], Partial fill upon patient request if the prescription is for a schedule II opioid drug., 155.1, cm... Start Date: 01/13/23 Status: Ordered naproxen 500 mg oral tablet 1 tablet = 500 mg, By Mouth, 2 times a day, with food, prn KUMARI, # 30 tablet, 0 Refills, Maintenance,01/13/23 13:29:00 EDT, [facility] #[id number], Partial fill upon patient request if the prescription is for a schedule II opioid drug., 155.1, cm,... Start Date: 01/13/23 Status: Ordered Multivitamins with Folic Acid 1 mg oral tablet 1 tablet, By Mouth, Daily, # 90 tablet, 2 Refills, Maintenance, 03/25/22 9:19:00 EST, [facility] #[id number], Partial fill upon patient request if the [...] Care team information Care Team Personnel Name: Corey IQBAL, Dottie Position: [facility] OB RN Member Role: Primary Care Nurse Name: Jenny Valente MD Position: [facility] Resident Member Role: PCP Address: Address: [address] [place] [address]- Care Team Related Persons Name: ANNA BAEZA Name: FELTON TAPIA Address: home [address] [place] [address] Name: FEDE ALMARAZ Address: home [address] [address]
--- OUTSIDE RECORDS SUMMARY | 2023-10-25 00:54 | XMS_ITS | Continuity of Care Document ---
Author Organization [facility] Address [address] [place] [address]- Care Team Providers Care Environmental Lawyer Name Role Phone Jenny Valente MD Primary Care Physician Encounter [facility] [id number] Date(s): 02/21/23 - 03/23/[address] [address]- Attending Physician: Meghana Randall Admitting Physician: AdmMeghana [...] 2 Refills, Maintenance, 01/13/23 13:33:00 EDT, Tablet, [facility] #[id number], Partial fill upon patient request if the prescription is for a schedule II opioid drug., 155.1, cm... Start Date: 01/13/23 Status: Ordered naproxen 500 mg oral tablet 1 tablet = 500 mg, By Mouth, 2 times a day, with food, prn KUMARI, # 30 tablet, 0 Refills, Maintenance,01/13/23 13:29:00 EDT, [facility] #[id number], Partial fill upon patient request if the prescription is for a schedule II opioid drug., 155.1, cm,... Start Date: 01/13/23 Status: Ordered Multivitamins with Folic Acid 1 mg oral tablet 1 tablet, By Mouth, Daily, # 90 tablet, 2 Refills, Maintenance, 03/25/22 9:19:00 EST, [facility] #[id number], Partial fill upon patient request if the [...] Team Personnel Name: Dottie Nicole RN Position: [facility] OB RN Member Role: Primary Care Nurse Name: Jenny Valente MD Position: [facility] Resident Member Role: PCP Address: Address: [address] [place] [address]- Care Team Related Persons Name: ANNA BAEZA Name: FELTON TAPIA Address: home [address] [place] [address] Name: FEDE ALMARAZ Address: home [address] [facility] [address] [place] [address]
--- OUTSIDE RECORDS SUMMARY | 2023-10-25 00:54 | XMS_ITS | Continuity of Care Document ---
Author Organization [facility] Address [address] [place] [address]- Care Team Providers Care High School Hvac R Instructor Name Role Phone Jenny Valente MD Primary Care Physician Encounter [facility] Date(s): 02/17/23 - 04/16/23 [facility] [address] [place] [phone]- Attending Physician: Laurent Banks MD Admitting Physician: Laurent Banks MD Allergies, Adverse Reactions, Alerts Substance Reaction [...] 2 Refills, Maintenance, 01/13/23 13:33:00 EDT, Tablet, [facility] #[id number], Partial fill upon patient request if the prescription is for a schedule II opioid drug., 155.1, cm... Start Date: 01/13/23 Status: Ordered naproxen 500 mg oral tablet 1 tablet = 500 mg, By Mouth, 2 times a day, with food, prn KUMARI, # 30 tablet, 0 Refills, Maintenance,01/13/23 13:29:00 EDT, [facility] #[id number], Partial fill upon patient request if the prescription is for a schedule II opioid drug., 155.1, cm,... Start Date: 01/13/23 Status: Ordered Multivitamins with Folic Acid 1 mg oral tablet 1 tablet, By Mouth, Daily, # 90 tablet, 2 Refills, Maintenance, 03/25/22 9:19:00 EST, [facility] #[id number], Partial fill upon patient request if the [...] Personnel Name: Dottie Nicole RN Position: [facility] OB RN Member Role: Primary Care Nurse Name: Jenny Valente MD Position: [facility] Resident Member Role: PCP Address: Address: [address] [place] [address]- Care Team Related Persons Name: BAEZAANNA COY Name: FELTON TAPIA Address: home [address] [place] [address] Name: FEDE ALMARAZ Address: home [address] [place] [address]
--- OUTSIDE RECORDS SUMMARY | 2023-10-25 00:55 | XMS_ITS | Continuity of Care Document ---
Author Organization [facility] Address [address] [place] [address]- Care Team Providers Care Experimental Plastics Fabricator Name Role Phone Jenny Valente MD Primary Care Physician Encounter [facility] Date(s): 01/13/23 - 02/12/23 [facility] [address] [place] [address]- Allergies, Adverse Reactions, Alerts Substance Reaction Severity [...] 2 Refills, Maintenance, 01/13/23 13:33:00 EDT, Tablet, [facility] #[id number], Partial fill upon patient request if the prescription is for a schedule II opioid drug., 155.1, cm... Start Date: 01/13/23 Status: Ordered naproxen 500 mg oral tablet 1 tablet = 500 mg, By Mouth, 2 times a day, with food, prn KUMARI, # 30 tablet, 0 Refills, Maintenance,01/13/23 13:29:00 EDT, [facility] #[id number], Partial fill upon patient request if the prescription is for a schedule II opioid drug., 155.1, cm,... Start Date: 01/13/23 Status: Ordered Multivitamins with Folic Acid 1 mg oral tablet 1 tablet, By Mouth, Daily, # 90 tablet, 2 Refills, Maintenance, 03/25/22 9:19:00 EST, [facility] #[id number], Partial fill upon patient request if the [...] Team Personnel Name: Dottie Nicole RN Position: [facility] OB RN Member Role: Primary Care Nurse Name: Jenny Valente MD Position: [facility] Resident Member Role: PCP Address: Address: [address] [place] [address]- Care Team Related Persons Name: ANNA BAEZA Name: FELTON TAPIA Address: home [address] [place] [address] Name: FEDE ALMARAZ Address: [address] [address]
--- OUTSIDE RECORDS SUMMARY | 2023-10-25 00:55 | XMS_ITS | Continuity of Care Document ---
Author Organization [facility] Address [address] [place] [address]- Care Team Providers Care Assistant Controller Name Role Phone Ambrosio MOTA, Jenny Primary Care Physician [phone] Encounter [facility] Date(s): 02/17/23 - 04/22/23 [facility] [address] [place] [address]- Attending Physician: Minh FRANKLIN, Alma Mendoza Admitting Physician: Minh FRANKLIN, Alma Mendoza Allergies, Adverse Reactions, Alerts Substance Reaction Severity [...] 2 Refills, Maintenance, 01/13/23 13:33:00 EDT, Tablet, [facility] #[id number], Partial fill upon patient request if the prescription is for a schedule II opioid drug., 155.1, cm... Start Date: 01/13/23 Status: Ordered naproxen 500 mg oral tablet 1 tablet = 500 mg, By Mouth, 2 times a day, with food, prn KUMARI, # 30 tablet, 0 Refills, Maintenance,01/13/23 13:29:00 EDT, [facility] #[id number], Partial fill upon patient request if the prescription is for a schedule II opioid drug., 155.1, cm,... Start Date: 01/13/23 Status: Ordered Multivitamins with Folic Acid 1 mg oral tablet 1 tablet, By Mouth, Daily, # 90 tablet, 2 Refills, Maintenance, 03/25/22 9:19:00 EST, [facility] #[id number], Partial fill upon patient request if the [...] Care Nurse Name: Jenny Valente MD Position: [facility] Resident Member Role: PCP Address: Address: [address] [place] [address]- Care Team Related Persons Name: ANNA BAEZA Name: FELTON TAPIA Address: home [address] [place] [address] Name: FEDE ALMARAZ Address: home [address] [place] [address]
--- OUTSIDE RECORDS SUMMARY | 2023-10-25 00:55 | XMS_ITS | Continuity of Care Document ---
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 Start Date: 01/13/23 Status: Ordered naproxen 500 mg oral tablet 1 tablet = 500 mg, By Mouth, 2 times a day, with food, prn KUMARI, # 30 tablet, 0 Refills, Maintenance,01/13/23 13:29:00 EDT, [facility] #[id number], Partial fill upon patient request if the prescription is for a schedule II opioid drug., 155.1, cm,... Start Date: 01/13/23 Status: Ordered Multivitamins with Folic Acid 1 mg oral tablet 1 tablet, By Mouth, Daily, # 90 tablet, 2 Refills, Maintenance, 03/25/22 9:19:00 EST, [facility] #[id number], Partial fill upon patient request if the [...] in lifetime) entered on: 03/25/22 Sex Female Laboratory * Event Display: Non BH Lab Results Authored Date: Patient Care team information Care Team Personnel Name: Dottie Nicole RN Position: [facility] OB RN Member Role: Primary Care Nurse Name: Jenny Valente MD Position: [facility] Resident Member Role: PCP Address: Address: [address] [place] [address] Care Team Related Persons Name: ANNA BAEZA Name: FELTON TAPIA Address: home [address] [place] [address] Name: FEDE ALMARAZ Address: [address] [facility] [address] [address]
--- OUTSIDE RECORDS SUMMARY | 2023-10-25 00:55 | XMS_ITS | Continuity of Care Document ---
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 Start Date: 01/13/23 Status: Ordered naproxen 500 mg oral tablet 1 tablet = 500 mg, By Mouth, 2 times a day, with food, prn KUMARI, # 30 tablet, 0 Refills, Maintenance,01/13/23 13:29:00 EDT, [facility] #[id number], Partial fill upon patient request if the prescription is for a schedule II opioid drug., 155.1, cm,... Start Date: 01/13/23 Status: Ordered Multivitamins with Folic Acid 1 mg oral tablet 1 tablet, By Mouth, Daily, # 90 tablet, 2 Refills, Maintenance, 03/25/22 9:19:00 EST, [facility] #[id number], Partial fill upon patient request if the [...] Team Personnel Name: Dottie Nicole RN Position: [facility] OB RN Member Role: Primary Care Nurse Name: Jenny Valente MD Position: [facility] Resident Member Role: PCP Address: Address: [address] [place] [address]- Care Team Related Persons Name: ANNA BAEZA Name: FELTON TAPIA Address: home [address] [place] [address] Name: FEDE ALMARAZ Address: home [address] [address]
[2023-10-25] MEDS: Ibuprofen 600 MG TABLET PO (01:23)
[2023-10-25 01:33] VITALS: BP 152/91; PULSE 75; RESP 16; TEMP 36.6; O2SAT 100
== END 2023-10-25 01:34 | disposition home or self-care (01) ==
PROVIDERS: Emergency Provider Internal Medicine
DX: Z04.1 Encounter for examination and observation following transport accident (principal); R51.9 Headache, unspecified
CPT/HCPCS: 99283

== ENCOUNTER → 2024-08-14 15:10 | Outpatient (BNVA) | payer OTHER, SELFPAY | PROVIDERS: Visit Provider Physician Assistant Medical | DX: S16.1XXA Strain of muscle, fascia and tendon at neck level, initial encounter (principal); S00.83XA Contusion of other part of head, initial encounter; Y04.2XXA Assault by strike against or bumped into by another person, initial encounter | CPT/HCPCS: 72052; 99202 ==

== ENCOUNTER → 2024-08-16 11:36 | Outpatient (BNVA) | payer OTHER, SELFPAY | PROVIDERS: Visit Provider Physician Assistant Medical | DX: S16.1XXA Strain of muscle, fascia and tendon at neck level, initial encounter (principal); S00.83XA Contusion of other part of head, initial encounter; Y04.2XXA Assault by strike against or bumped into by another person, initial encounter; Z02.79 Encounter for issue of other medical certificate | CPT/HCPCS: 99213 ==